=== PATIENT | male | born 1965 | race Caucasian/White ===

== ENCOUNTER 2018-04-11 14:56 | Observation (INO) | payer BC, SELFPAY ==
[2018-04-11] VITALS (8 sets, daily range): BP systolic 127–164; BP diastolic 68–91; PULSE 66–99; RESP 16–18; TEMP 36.1–36.8; O2SAT 91–100; BMI 39.9; BMI 39.5
--- NOTE | 2018-04-11 | IMM_PTH ---
PATIENT: KENIA SOOD LOC: MS3 U#:[id number] AGE/SX: 52/M ROOM: NH321 RE04/11/[address]: Dr. Tani Campbell MD : 1965 BED: 1 DIS: 04/12/2018 SPEC #: [id number] RECD: 04/13/18 13:43 STATUS: SOUZandra REQ #: [id number] TAYLER: 04/11/18 00:[address]: Tani Campbell DEPT: IMMUNOHISTOCHEMISTRY RECD BY: Ruth Oliveira ENTERED: 04/13/18 13:45 SP TYPE: IMMUNO OTHR DR: Dr. Landon Martinez MD Tissues: Appendix, NOS Procedures: Synapto (add) CD56 (add) CHROMO (add) NEUROFIL (add) Pankeratin (initial) S-100 (add) Comments: @ Specimen number changed from [id number] to [id number] @ on 04/13/18 at 1346 by RGOOD. PHYSICIAN & [address] [address] SPECIMEN INFORMATION: Tissue Source: Appendix Clinical Info: Acute appendicitis Specimen Number: [id number] #1 CPT code: 00679, 18094 x5 METHODOLOGY: Deparaffinized sections of prefer/formalin-fixed tissue or PAP/DQ stained slides are incubated with monoclonal/polyclonal antibodies/oligonucleotide probes. Localization is made via biotin free immunoperoxidase method. Appropriate controls are performed and reacted as expected. Results on target cell population are indicated in the following table: RESULTS: ANTIBODY / CLONE RESULT Block #1 AE1-3 (AE1/AE3/PCK26) negative S-100 (4C4.9) positive CD56 (123C3.D5) positive Chromo (LK2H10) negative Synapto (polyclonal) negative NSE Neuron Specific Enolase negative These tests were developed and their performance characteristics determined by [facility]. They may not have been cleared or approved by the U.S. Food and Drug Administration. The FDA has determined that such clearance or approval is not necessary. INTERPRETATION: Appendix, appendectomy: Consistent with focal benign neuronal hyperplasia. AM:yonas 04/17/18
--- NOTE | 2018-04-11 15:17 | CT_ITS ---
STUDY: CT ABDOMEN AND PELVIS WITH CONTRAST REASON FOR EXAM: Male, 52 years old. Right lower quadrant pain RADIATION DOSAGE (If Supplied By Facility): CTDIvol = ( 20.40 ) mGy, DLP = ( 1264.74 ) mGycm TECHNIQUE: Transaxial images were obtained from the dome of the diaphragm to the symphysis pubis without oral contrast. 100mL ml of Isovue 300 contrast was administered. Sagittal and coronal images were reconstructed. Individualized dose optimization techniques were used for this CT. COMPARISON: None. FINDINGS: Minor interstitial thickening at the lung bases. Heart appears mildly enlarged.. There is a small pericardial effusion.. There is prominence of the right lobe of the liver which is diffusely fatty infiltrated without mass or bile duct dilatation. Normal gallbladder and extrahepatic biliary system. Normal spleen. Normal pancreas. Normal bilateral adrenal glands. Tiny nonobstructing left renal calculus. No evidence for hydronephrosis or mass Normal visualized stomach. Normal small intestine. Normal colon. The appendix appears to be within the upper limits of normal size. There is no thickening of the wall, narrowing the lumen or appreciable inflammatory changes in the fat.. Normal abdominal aorta. Normal inferior vena cava. Normal retroperitoneum. Bladder is incompletely distended and mildly thick-walled There are mildly enlarged external iliac and femoral nodes bilaterally measuring in the 1 to 1.5 cm size range of uncertain clinical significance Normal abdominal wall. Lumbar spine demonstrates minor spondylosis CT/Abdomen/Pelvis WITH Contrast IMPRESSION: Left nephrolithiasis without evidence for nephrosis or ureteral calculus. Mild hepatomegaly and fatty infiltrated liver No definitive evidence for acute appendicitis. Incidental finding of mildly enlarged external iliac and common femoral nodes bilaterally of uncertain etiology or clinical significance. Electronically Signed: Neymar Puente MD at 17:31 EST , Service support ,
--- NOTE | 2018-04-11 15:21 | ED.VISSUMM ---
- ER Visit Summary Date of Service: 04/11/18 Chief Complaint: Abdominal pain History of Present Illness: The patient is a 52 M who presents with abdominal pain that began early this morning. Patient states the pain has been gradually getting worse. Patient states the pain is worse with certain movements. Patient states the pain is also worse with riding in a car. 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 She denies any nausea or vomiting but admits to diminished appetite. Patient denies any diarrhea, melena, or hematochezia. Patient denies any urinary complaints. Physical Examination: Vital signs are stable. Patient is afebrile. Patient is in no acute distress. Oral mucosa is pink and moist. Neck is supple. Trachea is midline. There is no JVD noted. Heart was regular rate and rhythm. Lungs are clear and equal bilateral. Abdomen is soft. Bowel sounds are normal. There is right lower quadrant, left lower quadrant, and right upper quadrant tenderness, but worse over the right lower quadrant. There is some rebound noted. There is no guarding noted. Obturator sign was negative. Heel strike was negative. Skin is warm dry. Cranial nerves II through XII are intact. There are no focal motor or sensory deficits noted. The remaining physical exam is within normal limits. Test Results: CBC showed a leukocytosis of 12.4. Comprehensive metabolic profile was within normal limits. Urinalysis was essentially within normal limits. CT scan of the abdomen and pelvis showed left nephrolithiasis without any evidence of ureteral calculus. There is no definite evidence for acute appendicitis. There are enlarged external iliac and common femoral lymph nodes. This was interpreted by the radiologist. Emergency Department Course and Treatment: Case was discussed with Dr. Campbell. He was in to evaluate the patient. He also felt that the patient had acute appendicitis. He will admit the patient and take the patient to the OR tonight for appendectomy. Patient understood and was agreeable with the plan. All questions were answered. Disposition: Admit to hospital Impression: Acute appendicitis This note was generated with [employer] dictation software. It may contain incorrect words, spelling, and punctuation that were not noted in review of the chart prior to signing ED Disposition - Plan for ED Patient: Disposition: Acute Care Hospital [facility] Chief Complaint: Abd Pain Diagnosis: Acute appendicitis Referrals: Landon Martinez MD [Primary Care Provider] -
--- NOTE | 2018-04-11 15:25 | ED.DCSUM_ITS ---
- ER Visit Summary Date of Service: 04/11/18 Chief Complaint: Abdominal pain History of Present Illness: The patient is a 52 M who presents with abdominal pain that began early this morning. Patient states the pain has been gradually getting worse. Patient states the pain is worse with certain movements. Patient states the pain is also worse with riding in a car. 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 She denies any nausea or vomiting but admits to diminished appetite. Patient denies any diarrhea, melena, or hematochezia. Patient denies any urinary complaints. Physical Examination: Vital signs are stable. Patient is afebrile. Patient is in no acute distress. Oral mucosa is pink and moist. Neck is supple. Trachea is midline. There is no JVD noted. Heart was regular rate and rhythm. Lungs are clear and equal bilateral. Abdomen is soft. Bowel sounds are normal. There is right lower quadrant, left lower quadrant, and right upper quadrant tenderness, but worse over the right lower quadrant. There is some rebound noted. There is no guarding noted. Obturator sign was negative. Heel strike was negative. Skin is warm dry. Cranial nerves II through XII are intact. There are no focal motor or sensory deficits noted. The remaining physical exam is within normal limits. Test Results: CBC showed a leukocytosis of 12.4. Comprehensive metabolic profile was within normal limits. Urinalysis was essentially within normal limits. CT scan of the abdomen and pelvis showed left nephrolithiasis without any evidence of ureteral calculus. There is no definite evidence for acute appendicitis. There are enlarged external iliac and common femoral lymph nodes. This was interpreted by the radiologist. Emergency Department Course and Treatment: Case was discussed with Dr. Campbell. He was in to evaluate the patient. He also felt that the patient had acute appendicitis. He will admit the patient and take the patient to the OR tonight for appendectomy. Patient understood and was agreeable with the plan. All questions were answered. Disposition: Admit to hospital Impression: Acute appendicitis This note was generated with [employer] dictation software. It may contain incorrect words, spelling, and punctuation that were not noted in review of the chart prior to signing ED Disposition - Plan for ED Patient: Disposition: Acute Care Hospital [facility] Chief Complaint: Abd Pain Diagnosis: Acute appendicitis Referrals: Landon Martinez MD [Primary Care Provider] -
[2018-04-11] MEDS: 0.9% Normal Saline 1,000 ML 1000 ML IV (15:31)
[2018-04-11] MEDS: Morphine 4 MG/ML Syringe IV (15:31)
[2018-04-11 15:33] LABS: Absolute Lymphocyte Count 3.22 X10^3/ul (0.83-4.51); Absolute Neutrophil Count 7.8 X10^3/uL (2.0-7.7); Basophil# 0.06 X10^3/uL; Basophil% 0.5 % (0-1); Eosinophil# 0.29 X10^3/uL; Eosinophils% 2.3 % (0-5); Hematocrit 46.6 % (40-54); Hemoglobin 15.4 g/dl (13.0-16.5); Lymphocyte # 3.22 X10^3/ul (4.0); Mean Corpuscular Hgb 30.9 pg (27.0-32.0); Mean Corpuscular Volume 93.6 fL (80-94); Mean Platelet Vol. 10.1 fl (6.2-12.0); Monocyte# 0.97 X10^3/uL; Monocyte% 7.8 % (0-10); Neutrophil # 7.82 X10^3/uL (2.7-7.7); Neutrophil % 63.2 % (47-70); Platelet Count 273 K/mm3 (150-450); RBC Distribution Width CV 14.1 % (11.6-14.6); RBC Distribution Width SD 46.6 fl (35.1-43.9); Red Blood Count 4.98 M/mm3 (4.6-6.2); White Blood Count 12.4 K/mm3 (4.4-11.0)
[2018-04-11 15:34] LABS: POSITIVE COUNT NO; POSITIVE DIFFERENTIAL NO; POSITIVE MORPHOLOGY NO
[2018-04-11 15:48] LABS: ALB/GLOB Ratio 0.9 RATIO (0.9-2.4); AST(SGOT) 16 U/L (15-37); Alanine Aminotransfer ALT/SGPT 30 U/L (16-61); Albumin, Serum 3.3 g/dL (3.2-5.0); Alkaline Phosphatase 91 U/L (45-117); Anion Gap 7 (5-15); BUN 14 mg/dL (7-18); BUN/Creat Ratio 15.4 RATIO (10-20); Calcium,Total 8.2 mg/dL (8.5-10.1); Chloride 104 mmol/L (98-107); Creatinine, Serum 0.91 mg/dL (0.70-1.30); EST Glomerular Filtration Rate 93 mL/min (>60); Est Glom Filt Rate - Afr Amer 113 mL/min (>60); Estimated Creatinine Clearance 92.91 ml/min; Globulin 3.7 g/dL (2.2-4.2); Glucose 98 mg/dL (74-106); Lipase 201 U/L (73-393); Potassium 4.1 mmol/L (3.5-5.1); Sodium Level 137 mmol/L (136-145)
[2018-04-11 17:02] LABS: Bacteria 0 SEEN /hpf (None Seen); Mucous, Urine 0 SEEN /hpf (<or=2+); Red Blood Cells-Urine 0 SEEN /hpf (0-5); Squamous Epithelial Cells - UA 0 SEEN /hpf (0-5); White Blood Cells 0 SEEN /hpf (0-5)
[2018-04-11 17:39] LABS: Color, Urine Yellow (Yellow); Glucose, Dipstick Normal (Normal); Ketone-Dipstick Negative (Negative); Leukocyte Esterase-Dipstick 25 /ul (Negative); Nitrite-Dipstick Negative (Negative); Occult Blood-Urine Negative /ul (Negative); Protein-Dipstick 15 mg/dl (Negative); Urine Bilirubin Dipstick Negative (Negative); Urine Clarity Clear (Clear); Urine Urobilinogen 4 mg/dl (Normal)
[2018-04-11 18:46] LABS: Bedside Glucose 104 mg/dL (70-110)
--- NOTE | 2018-04-11 19:00 | PCM.CONS.GEN ---
Problem List (1) Acute appendicitis Status: Acute Reason for Consult Date of Consultation: 04/11/18 History of Present Illness: The patient is a 52 M who presents with abdominal pain that began early this morning. Patient states the pain has been gradually getting worse. Patient states the pain is worse with certain movements. Patient states the pain is also worse with riding in a car. 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 She denies any nausea or vomiting but admits to diminished appetite. Patient denies any diarrhea, melena, or hematochezia. Patient denies any urinary complaints. CAT scan shows early acute appendicitis Past Medical History Allergies No Known Allergies Allergy (Verified 04/11/18 15:00) Home Medications: Ambulatory Orders Medication Instructions Recorded Furosemide [Lasix] 20 mg PO DAILY 04/11/18 Lisinopril 30 mg PO DAILY 04/11/18 Metformin HCl 500 mg PO BID 04/11/18 Metoprolol(XL)Succ [Toprol Xl 50 mg PO DAILY 04/11/18 (Beta Verna)] Smoking Status: Current every day smoker Patient Problems: Active and Suspected Problems Acute appendicitis (Acute) - Physical Exam General: Alert, Oriented x3 Lungs: Clear to auscultation Cardiovascular: Regular rate, Regular Rhythm, No murmurs Abdomen: Tender - Tender at McBurney's point with rebound guarding and peritoneal signs. Extremities: No clubbing, No cyanosis, No edema Vital Signs Temp Pulse Resp BP Pulse Ox 97.5 F L 78 18 164/82 H 100 04/11/18 14:58 04/11/18 14:58 04/11/18 14:58 04/11/18 14:58 04/11/18 14:58 Oxygen Delivery Method Room Air Weight: 262 lb 12.656 oz Body Mass Index (BMI) 39.9 Laboratory Tests Past 24 Hrs 04/11/18 04/11/18 04/11/18 15:20 15:20 16:59 WBC 12.4 H RBC 4.98 Hgb 15.4 Hct 46.6 MCV 93.6 MCH 30.9 MCHC 33.0 RDW 14.1 RDW Differential 46.6 H Plt Count 273 MPV 10.1 Immature Gran % (Auto) 0.200 Neut % (Auto) 63.2 Lymph % (Auto) 26.0 [place] % (Auto) 7.8 Eos % (Auto) 2.3 Baso % (Auto) 0.5 Absolute Neuts (auto) 7.8 H Absolute Lymphs (auto) 3.22 Total Counted Not Reportable Sodium 137 Potassium 4.1 Chloride 104 Carbon Dioxide 26.0 Anion Gap 7 BUN 14 Creatinine 0.91 Estim Creat Clear Calc 92.91 Est GFR (MDRD) Af Amer 113 Est GFR (MDRD) Non-Af 93 BUN/Creatinine Ratio 15.4 Glucose 98 Calcium 8.2 L Total Bilirubin 0.60 AST 16 ALT 30 Alkaline Phosphatase 91 Total Protein 7.0 Albumin 3.3 Globulin 3.7 Albumin/Globulin Ratio 0.9 Lipase 201 Urine Color Yellow Urine Clarity Clear Urine pH 7.0 Ur Specific [place] 1.010 Urine Protein 15 H Urine Glucose (UA) Normal Urine Ketones Negative Urine Occult Blood Negative Urine Nitrite Negative Urine Bilirubin Negative Urine Urobilinogen 4 H Ur Leukocyte Esterase 25 H Urine RBC 0 SEEN Urine WBC 0 SEEN Ur Squamous Epith Cells 0 SEEN Urine Bacteria 0 SEEN Urine Mucus 0 SEEN POC Glucose 04/11/18 18:33 POC Glucose 104 Assessment/Plan All Active Problems Acute appendicitis (Acute) My plan will be to perform a laparoscopic appendectomy on the patient. I told him there is a small chance this could be a Meckel's diverticulum and I will run the small bowel to make sure that he does not have one. Risk benefits to include bleeding infection delayed abscess injury to surrounding structures blood clots heart attacks pneumonias strokes up to and including were all discussed with the patient and they agreed to proceed.
--- NOTE | 2018-04-11 19:30 | APP_PTH ---
PATIENT: KENIA SOOD LOC: MS3 U#:[id number] AGE/SX: 52/M ROOM: TX321 RE04/11/[address]: Dr. Tani Campbell MD : 1965 BED: 1 DIS: 04/12/2018 SPEC #: [id number] RECD: 04/12/18 07:03 STATUS: RUKHSANA REFernandez #: [id number] TAYLER: 04/11/18 19:[address]: Tani Campbell DEPT: SURGICAL PATHOLOGY RECD BY: Rodney Humphries ENTERED: 04/12/18 08:42 SP TYPE: APPENDIX OTHR DR: Dr. Landon Martinez MD Tissues: Appendix, NOS Procedures: Surgery Specimen Level III HEADER OPERATION: Laparoscopic appendectomy PRE-OP DIAGNOSIS: Acute appendicitis TISSUE SUBMITTED: Appendix, torsed epiploic fat MICROSCOPIC DIAGNOSIS Appendix, appendectomy: Fecal impaction Focal neural hyperplasia, benign. Epiploic fat, excision: Congestion with acute inflammation consistent with torsion. AM:yonas 04/13/18 COMMENT Immunohistochemistry ([id number]) supports the above diagnosis. MICROSCOPIC DESCRIPTION Slides are reviewed. GROSS DESCRIPTION Received is one container labeled with the patient's name and designated appendix. The specimen consists of a vermiform appendix measuring 6.5 cm in length and with a maximal diameter of 0.8 cm. Sections reveal fecal material. No mass lesions are identified. Also present in the specimen container is an irregular fragment of ritchie-yellow fatty tissue measuring 7.5 x 6.5 x 2 cm. Serial sections of this fatty tissue reveals ritchie cut surfaces. No mass lesions are identified. Job Service Consultant sections of the appendix and fat are submitted in three cassettes. / AM:yonas 04/12/18 TC:5 CPT: 44326
--- NOTE | 2018-04-11 19:39 | OP.PCM_ITS ---
Problem List (1) Acute appendicitis Status: Acute Qualifiers: Acute appendicitis type: with localized peritonitis Appendicitis gangrene presence: without gangrene Appendicitis perforation presence: without perforation Appendicitis abscess presence: without abscess Qualified Code(s): K35.30 - Acute appendicitis with localized peritonitis, without perforation or gangrene (2) Epiploic appendagitis Status: Acute Report of Operation Date of Procedure: 04/11/18 Pre-Operative Diagnosis: Acute appendicitis Post-Operative Diagnosis: Same. Epiploic appendigitis Surgery/Procedure Performed:: Laparoscopic appendectomy. Resection of that epiploic fat Type of Anesthesia:: General Anesthesiologist: Cheryle Park Specimen's removed: Appendix Drains: None Estimated Blood Loss (mL): <25 cc Fluids Replaced: 600 cc lr Description of Procedure: Patient was brought to the operating room placed in supine position under excellent general trach intubation the abdomen was sterilely prepped and draped in the usual fashion. Local was injected in for umbilically. A curvilinear incision was made. Dissection was carried down to the fascia. Fascia was grasped with a [place]. Varies needle was placed inside the abdomen. The abdomen was insufflated to 15 torr. A 10/12 trocar was placed without difficulty. Patient was placed in the headdown and rotated to the left. Suprapubic #5 trochars placed left lower quadrant #5 trocar was placed both of these under direct visualization without injury to underlying structures. I dissected identified in the appendix took the mesoappendix down with the Enseal all the way to the base of the appendix. I transected the base the appendix with a 45 linear cutter placed the specimen in a bag and removed it from the umbilical port without difficulty. I was not satisfied that this appendix was the true cause of his discomfort I placed the patient head up position and was looking for a perforated ulcer when I encountered was a torsion of epiploic fat that looked I transected the epiploic fat with the Enseal placed in a specimen bag and delivered through the umbilical port without difficulty it obviously was probably the source of his discomfort and was located more in the right upper quadrant. I inspected the gallbladder this look normal I saw no purulent fluid to give me suggestion that this was a perforated ulcer in the stomach looked fine. I ran the small bowel for 2 feet I did not see any signs of Meckel's diverticulum. I removed the trochars under direct visualization. I closed the fascia the umbilical port with a kysclr-sb-ruyic stitch of 0 Vicryl x2. Skin incisions were closed with septicum stitches of 4-0 Monocryl. Steri-Strips are applied. Sterile dressings were applied. The patient tolerated the procedure well. - Admit VTE Documentation VTE Present on Admission: No VTE Mechan Device Prophylaxis: SCD's VTE Pharm Prophylaxis ordered?: No Reason prophylaxis not ordered:: Treatment Not Indicated
[2018-04-11] MEDS: Bupivacaine Mpf 0.5% 30 ML VIAL (19:40)
[2018-04-11 20:51] LABS: Bedside Glucose 152 mg/dL (70-110)
[2018-04-11] MEDS: Lactated Ringers 1,000 ML 75 ML IV (21:55)
--- NOTE | 2018-04-11 23:17 | CPS ---
pt has own bipap with nasal mask-did not bring with him- pt states does not want hospital bipap-nurse aware
[2018-04-12] VITALS (11 sets, daily range): BP systolic 121–152; BP diastolic 65–76; PULSE 60–74; RESP 16–18; TEMP 36.4–36.6; O2SAT 78–97
[2018-04-12] MEDS: Piperacil/Tazobactam 3.375 GM/50 ML ML IV ×2 (04:55→13:24)
--- NOTE | 2018-04-12 07:15 | PCM.DC.APPY ---
Discharge Diet: Light diet - advance as tolerated Discharge Activity: May Not Drive - for 5 days or while taking narcotic pain meds. May shower in (days): 1 Call your doctor if your incision/area has: Continuous Slow Oozing, Sudden Increased Bleeding, Increased Pain/ Swelling, Increased Redness, Foul Smelling Discharge Call your doctor if you observe: Fever of 101 or Higher Suture Line Care: Avoid Pulling/Pushing, Avoid Pinching/Bending Remove Dressing in (days):: 2 - Leave Steri-strips in place for 1 week from surgery Cleanse incision/area with: Soap & Water Additional Dressing/Incision Instructions:: Keep dressing clean and dry. Change or remove dressing in 2 days. Leave steri strips for 1 week. May protect with a gauze bandaid. Medications to take at Discharge Furosemide [Lasix] 20 mg PO DAILY 04/11/18 Lisinopril 30 mg PO DAILY 04/11/18 Metformin HCl 500 mg PO BID 04/11/18 Metoprolol(XL)Succ [Toprol Xl (Beta Verna)] 50 mg PO DAILY 04/11/18 Hydrocodone Bitart/Apap 5-325 [[place] 5/325] 1 - 2 tablet PO Q6H PRN PRN 3 Days #10 tablet 04/12/18 Allergies/Adverse Reactions: Allergies No Known Allergies Allergy (Verified 04/11/18 15:00) The following prescriptions were given: Hydrocodone Bitart/Apap 5-325 [[place] 5/325] 1 - 2 tablet PO Q6H PRN PRN 3 Days #10 tablet PRN Reason: Mild-Moderate (pain scale 1-5) Primary Care Physician: Landon Martinez MD [Primary Care Provider] - Test Results: Test results from this visit will be discussed in further detail at your follow-up appointment, if applicable. Please Follow Up With: Argelia Silverman PA-C - [phone] When: 10 days
--- NOTE | 2018-04-12 07:23 | PCM.PN.SRG ---
Patient Problems: Active and Suspected Problems Acute appendicitis (Acute) Epiploic appendagitis (Acute) Subjective: Patient evaluated resting comfortably in bed. He denies chest pain and shortness of breath. He notes minimal amount of abdominal pain. He denies nausea, vomiting, fever. He is tolerating diet well. He continues to be on oxygen secondary to low O2 sats. He denies flatus and BM. - Physical Exam General: Alert, Oriented x3, Cooperative Abdomen: Hypoactive Bowel Sounds, Distended, Tender - RLQ, - - Incisions- c/d/i. No erythema or infection noted. Vital Signs Temp Pulse Resp BP Pulse Ox 97.6 F L 64 18 152/76 H 94 04/12/18 06:32 04/12/18 06:32 04/12/18 06:32 04/12/18 06:32 04/12/18 06:32 Oxygen Flow Rate (L/min) 4 Oxygen Delivery Method Nasal Cannula Weight: 260 lb Body Mass Index (BMI) 39.5 Finger Stick Blood Glucose 152 Intake and Output for Last 24 Hours 04/10/18 04/11/18 04/12/18 23:59 23:59 23:59 Intake Total 1376 / 1376 924 / 924 Balance 1376 / 1376 924 / 924 Laboratory Tests Past 24 Hrs 04/11/18 04/11/18 04/11/18 15:20 15:20 16:59 WBC 12.4 H RBC 4.98 Hgb 15.4 Hct 46.6 MCV 93.6 MCH 30.9 MCHC 33.0 RDW 14.1 RDW Differential 46.6 H Plt Count 273 MPV 10.1 Immature Gran % (Auto) 0.200 Neut % (Auto) 63.2 Lymph % (Auto) 26.0 [place] % (Auto) 7.8 Eos % (Auto) 2.3 Baso % (Auto) 0.5 Absolute Neuts (auto) 7.8 H Absolute Lymphs (auto) 3.22 Total Counted Not Reportable Sodium 137 Potassium 4.1 Chloride 104 Carbon Dioxide 26.0 Anion Gap 7 BUN 14 Creatinine 0.91 Estim Creat Clear Calc 92.91 Est GFR (MDRD) Af Amer 113 Est GFR (MDRD) Non-Af 93 BUN/Creatinine Ratio 15.4 Glucose 98 Calcium 8.2 L Total Bilirubin 0.60 AST 16 ALT 30 Alkaline Phosphatase 91 Total Protein 7.0 Albumin 3.3 Globulin 3.7 Albumin/Globulin Ratio 0.9 Lipase 201 Urine Color Yellow Urine Clarity Clear Urine pH 7.0 Ur Specific [place] 1.010 Urine Protein 15 H Urine Glucose (UA) Normal Urine Ketones Negative Urine Occult Blood Negative Urine Nitrite Negative Urine Bilirubin Negative Urine Urobilinogen 4 H Ur Leukocyte Esterase 25 H Urine RBC 0 SEEN Urine WBC 0 SEEN Ur Squamous Epith Cells 0 SEEN Urine Bacteria 0 SEEN Urine Mucus 0 SEEN POC Glucose 04/11/18 04/11/18 20:40 18:33 POC Glucose 152 H 104 Medical Necessity - Tobacco Use Smoking Status: Current every day smoker Assessment/Plan All Active Problems Acute appendicitis (Acute) Epiploic appendagitis (Acute) I am following this patient in conjunction with Dr. Campbell S/p laparoscopic appendectomy Will need to wean off of oxygen Encourage ambulation and I.S. Hopeful discharge later today Code Visit Inpatient E&M: 72654 Subs Hosp L1 - Post-op
[2018-04-12] MEDS: HYDROcodone Bitartrate/Apap 5/325 Tablet PO (08:21)
[2018-04-12] MEDS: Furosemide 20 MG Tablet PO (08:23)
[2018-04-12] MEDS: Lisinopril 10 MG Tablet 30 MG PO (08:23)
[2018-04-12] MEDS: Metoprolol(XL)Succ 50 MG Tablet PO (08:23)
--- NOTE | 2018-04-12 10:07 | CASEMGMT ---
Addendum entered by Freda Mcdaniels 04/12/18 15:15: ENID spoke with Mackenzie in [facility]. Per Mackenzie pt was speaking to registration regarding insurance but will send Freda with [employer] up to speak with Pt. ENID met with pt to discuss self-pay. While this worker was meeting with pt, Freda from [employer] walked into room as well. Pt states that he got new cards and new member ID and group ID. Member ID and Group ID numbers provided to Freda with [facility]. Original Note: Social Work Note Pt is listed as self-pay. SW reviewed chart. Per [facility], pt informed [facility] that he has insurance and is calling employer. Freda Mcdaniels DRY BOSS, GIS ANALYST DEVELOPER
[2018-04-12] MEDS: 0.9% NaCl Peripheral Flush Adult/Peds IV (13:24)
--- OUTSIDE RECORDS SUMMARY | 2018-06-13 21:45 | XMS RPT_ITS ---
:1965 Author Organization OH[facility] Care Team Providers Name Role Phone DANAE ANDERSON (WATCH MANUFACTURING SUPERVISOR) Attending Unavailable MARÍA MCCARTNEY Referring Unavailable MARÍA MCCARTNEY Referring Unavailable DANAE ANDERSON ([facility]) Attending Unavailable DNAAE ANDERSON (WATCH MANUFACTURING SUPERVISOR) Referring Unavailable DANAE ANDERSON ([facility]) Referring Unavailable DANAE ANDERSON ([facility]) Attending Unavailable MARÍA MCCARTNEY Referring Unavailable María Mccartney Primary Care Unavailable Tani Campbell Attending Unavailable Tani Campbell Admitting Unavailable Tani Campbell Admitting Unavailable Argelia Silverman PA-C Attending Unavailable María Mccartney Primary Care Unavailable Tani Campbell Consulting Unavailable PROBLEMS PROBLEMS DATE TYPE CONDITION / CODE ATTENDING STATUS SOURCE 04/13/2018 Unknown K35.80 - Tani Campbell Active [facility] Unspecified acute Community appendicitis [facility] Hospital K35.80(ICD-10) Repository 11/07/2017 Active Unknown / DANAE ANDERSON Active [facility] UNK(Unknown) (WATCH MANUFACTURING SUPERVISOR) [place] Repository 07/20/2016 Active Abnormal findings NA Active [facility] on diagnostic [place] imaging of heart Repository and coronary circulation / R93.1(ICD-10) 10/31/2017 Active 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 [facility] (current) drug [place] therapy / Repository Z79.899(ICD-10) 10/31/2017 Active Essential NA Active [facility] (primary) [place] hypertension / Repository I10(ICD-10) PROCEDURES PROCEDURES No Procedure Records FoundRESULTS RESULTS DISCHARGE INSTRUCTION Observed: 04/12/2018 Status: F Source: URIEL 2:39 PM [facility] REPOSITORY [facility] Medical Records Department [address] [place] [address] Instructions for Home/Discharge Instructions 04/12/18 0715 MR#: [id number] Acct: [id number] Name: KENIA TRIVEDI Rep #: [id number] : 1965 52 From: Argelia Silverman PA-C PCP: María Mccartney MD Status: ADM FUNMI ADDENDUM by Argelia Silverman PA-C on 04/12/18 at 1439 Follow-up with PCP in 1 week. Continue to use incentive spirometer at home multiple times per day. Wear breathe rite strip. 04/12/18 1439 Date Argelia Silverman PA-C cc: María Mccartney MD * Signed Discharge Diet: Light diet - advance as tolerated Discharge Activity: May Not Drive - for 5 days or while taking narcotic pain meds. May shower in (days): 1 Call your doctor if your incision/area has: Continuous Slow Oozing, Sudden Increased Bleeding, Increased Pain/ Swelling, Increased Redness, Foul Smelling Discharge Call your doctor if you observe: Fever of 101 or Higher Suture Line Care: Avoid Pulling/Pushing, Avoid Pinching/Bending Remove Dressing in (days):: 2 - Leave Steri-strips in place for 1 week from surgery Cleanse incision/area with: Soap AND Water Additional Dressing/Incision Instructions:: Keep dressing clean and dry. Change or remove dressing in 2 days. Leave steri strips for 1 week. May protect with a gauze bandaid. Medications to take at Discharge Furosemide [Lasix] 20 mg PO DAILY 04/11/18 Lisinopril 30 mg PO DAILY 04/11/18 Metformin HCl 500 mg PO BID 04/11/18 Metoprolol(XL)Succ [Toprol Xl (Beta Verna)] 50 mg PO DAILY 04/11/18 Hydrocodone Bitart/Apap 5-325 [[place] 5/325] 1 - 2 tablet PO Q6H PRN PRN 3 Days #10 tablet 04/12/18 Allergies/Adverse Reactions: Allergies No Known Allergies Allergy (Verified 04/11/18 15:00) The following prescriptions were given: Hydrocodone Bitart/Apap 5-325 [[place] 5/325] 1 - 2 tablet PO Q6H PRN PRN 3 Days #10 tablet PRN Reason: Mild-Moderate (pain scale 1-5) Primary Care Physician: María Mccartney MD [Primary Care Provider] - Test Results: Test results from this visit will be discussed in further detail at your follow-up appointment, if applicable. Please Follow Up With: Argelia Silverman PA-C - [phone] When: 10 days 04/12/18 07 <Electronically signed by Argelia Silverman PA-C> Date Argelia Silverman PA-C CC: María Mccartney MD Signed BEDSIDE GLUCOSE Collected: 04/11/2018 Status: F Source: URIEL 8:40 PM [facility] REPOSITORY TYPE CODE TESTS RESULT OUT OF REFERENCE UNITS RANGE LAB L501.080 70-110 mg/dL High BEDSIDE GLU 152 Result Comment: MANAGEMENT OF PATIENT CARE PER NURSING PROTOCOL Performed By: #### L501.080 #### [facility] Laboratory Point of Care [address] [place] [address] BEDSIDE GLUCOSE Collected: 04/11/2018 Status: F Source: URIEL 6:33 PM [facility] REPOSITORY TYPE CODE TESTS RESULT OUT OF RANGE REFERENCE UNITS LAB L501.080 70-110 mg/dL Normal BEDSIDE GLU 104 Result Comment: MANAGEMENT OF PATIENT CARE PER NURSING PROTOCOL Performed By: #### L501.080 #### [facility] Point of Care [address] [place] [address] EMERGENCY DEPARTMENT Observed: 04/11/2018 Status: F Source: URIEL SUMMARY 5:53 PM [facility] REPOSITORY [facility] Medical Records Department [address] [place] [address] Emergency Department Summary 04/11/18 1521 MR#: [id number] Acct: [id number] Name: KENIA TRIVEDI Rep #: [id number] : 1965 52 From: Son Robbins DO PCP: María Mccartney MD Status: REG ER - ER Visit Summary Date of Service: 04/11/18 Chief Complaint: Abdominal pain History of Present Illness: The patient is a 52 M who presents with abdominal pain that began early this morning. Patient states the pain has been gradually getting worse. Patient states the pain is worse with certain movements. Patient states the pain is also worse with riding in a car. 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 She denies any nausea or vomiting but admits to diminished appetite. Patient denies any diarrhea, melena, or hematochezia. Patient denies any urinary complaints. Physical Examination: Vital signs are stable. Patient is afebrile. Patient is in no acute distress. Oral mucosa is pink and moist. Neck is supple. Trachea is midline. There is no JVD noted. Heart was regular rate and rhythm. Lungs are clear and equal bilateral. Abdomen is soft. Bowel sounds are normal. There is right lower quadrant, left lower quadrant, and right upper quadrant tenderness, but worse over the right lower quadrant. There is some rebound noted. There is no guarding noted. Obturator sign was negative. Heel strike was negative. Skin is warm dry. Cranial nerves II through XII are intact. There are no focal motor or sensory deficits noted. The remaining physical exam is within normal limits. Test Results: CBC showed a leukocytosis of 12.4. Comprehensive metabolic profile was within normal limits. Urinalysis was essentially within normal limits. CT scan of the abdomen and pelvis showed left nephrolithiasis without any evidence of ureteral calculus. There is no definite evidence for acute appendicitis. There are enlarged external iliac and common femoral lymph nodes. This was interpreted by the radiologist. Emergency Department Course and Treatment: Case was discussed with Dr. Campbell. He was in to evaluate the patient. He also felt that the patient had acute appendicitis. He will admit the patient and take the patient to the OR tonight for appendectomy. Patient understood and was agreeable with the plan. All questions were answered. Disposition: Admit to hospital Impression: Acute appendicitis This note was generated with [employer] dictation software. It may contain incorrect words, spelling, and punctuation that were not noted in review of the chart prior to signing ED Disposition - Plan for ED Patient: Disposition: Acute Care Hospital [facility] Chief Complaint: Abd Pain Diagnosis: Acute appendicitis Referrals: María Mccartney MD [Primary Care Provider] - What to do if you have Problems For any increased pain, shortness of breath, bleeding, nausea or vomiting, chest pain, or any unexpected problems, contact your Primary Care Provider. Call [facility] ([phone]) or report to the closest Emergency Room. Call 911 if necessary. 04/11/18 1753 <Electronically signed by Son Robbins DO> Date Son Robbins DO Cosigner Signature (If Indicated): Date CC: María Mccartney MD URINALYSIS, COMPLETE Collected: 04/11/2018 Status: F Source: URIEL 4:59 PM [facility] REPOSITORY Order Comment: Order Date: 04/11/18 How was Urine Obtained? CLEAN CATCH TYPE CODE TESTS RESULT OUT OF RANGE REFERENCE UNITS LAB L400.3000 Yellow COLOR Normal Yellow LAB L400.3050 Clear Normal CLARITY Clear LAB L400.3200 Normal mg/dl Normal GLUCOSE, UR Normal LAB L400.3300 Negative mg/dL Normal BILIRUBIN URINE Negative LAB L400.3400 Negative mg/dl Normal KETONE UR Negative LAB L400.3465 1.002-1.030 Normal SP.GR. DIPSTX 1.010 LAB L400.3550 5.0 - 8.0 pH UR Normal 7.0 LAB L400.3600 Negative mg/dl High PROT 15 DIPSTX LAB L400.3700 Normal mg/dl High 4 UROBILI LAB L400.3750 Negative Normal NITRITE UR Negative LAB L400.3780 Negative /ul Normal OCCULT BLOOD-UR Negative LAB L400.3800 Negative /ul High LEUK 25 ESTERASE LAB L400.4050 0-5 /hpf WBC 0 Normal SEEN LAB L400.4100 0-5 /hpf 0 Normal RBC-UA SEEN LAB L400.4150 0-5 /hpf SQUAM 0 Normal EPI SEEN LAB L400.4300 None Seen /hpf 0 Normal BACTERIA SEEN LAB L400.4350 <or=2+ /hpf 0 Normal MUCUS, URINE SEEN Performed By: #### L400.0001 #### [facility] [address] [place], [address] CBC W/DIFF, AUTOMATED Collected: 04/11/2018 Status: F Source: [place] 3:20 PM [facility] REPOSITORY TYPE CODE TESTS RESULT OUT OF RANGE REFERENCE UNITS LAB L100.1000 4.4-11.0 K/mm3 High WBC 12.4 LAB L100.1200 4.6-6.2 M/mm3 Normal RBC 4.98 LAB L100.1300 13.0-16.5 g/dl Normal HGB 15.4 LAB L100.1400 40-54 % Normal HCT 46.6 LAB L100.1500 80-94 fL Normal MCV 93.6 LAB L100.1600 27.0-32.0 pg Normal MCH 30.9 LAB L100.1700 32-36 g/gl Normal MCHC 33.0 LAB L100.1810 11.6-14.6 % Normal RDW CV 14.1 LAB L100.1820 35.1-43.9 fl High RDW SD 46.6 LAB L100.1900 150-450 K/mm3 Normal PLT 273 LAB L100.2000 6.2-12.0 fl Normal MPV 10.1 LAB L100.2100 47-70 % Normal NEUT% 63.2 LAB L100.2200 19-41 % Normal LY% 26.0 LAB L100.2300 0-10 % Normal MONO% 7.8 LAB L100.2400 0-5 % Normal EO% 2.3 LAB L100.2500 0-1 % Normal BASO% 0.5 LAB L100.2550 0.0-0.9 % Normal IM GRAN % 0.200 Result Comment: IG% - Immature Granulocytes (promyelocytes, myelocytes and metamyelocytes) > 1% indicates that a LEFT SHIFT is Present. LAB L100.2620 2.0-7.7 X10 3/uL High Absolute Neut 7.8 LAB L100.2720 0.83-4.51 X10 3/ul Normal Absolute Lymph 3.22 Performed By: #### L100.0100 #### [facility] [place] [address] [address], [address] COMPREHENSIVE METABOLIC Collected: 04/11/2018 Status: F Source: URIEL [facility] 3:20 PM [facility] REPOSITORY TYPE CODE TESTS RESULT OUT OF RANGE REFERENCE UNITS LAB L501.0100 74-106 mg/dL Normal GLU 98 Result Comment: Please note revised GLUCOSE reference range effective 2017. LAB L501.1000 7-18 mg/dL Normal BUN 14 LAB L501.1100 0.70-1.30 mg/dL Normal CREAT,SERUM 0.91 Result Comment: The validity of the calculated GFR AND GFRAA in patients over 70 years has not been determined. Clinical correlation is essential. LAB L501.1110 >60 mL/min Normal EST GFR 93 Result Comment: Non- GFR Calc LAB L501.1115 >60 mL/min Normal EST GFR - AA 113 Result Comment: GFR Calc LAB L501.1255 ml/min Normal Estimated CRCL 92.91 LAB L501.1300 10-20 RATIO Normal BUN/CRE 15.4 LAB L501.1500 6.4-8. g/dL Normal 2 T PROT 7.0 LAB L501.1800 3.2-5. g/dL Normal 0 ALB 3.3 LAB L501.1950 2.2-4. g/dL Normal 2 GLOB 3.7 LAB L501.2000 0.9-2. RATIO Normal 4 A/G 0.9 LAB L501.2200 8.5-10 mg/dL Low .1 CA 8.2 LAB L501.4100 15-37 U/L Normal AST 16 LAB L501.4305 45-117 U/L Normal ALK P 91 LAB L501.4405 16-61 U/L Normal ALT 30 LAB L501.4600 0.20-1 mg/dL Normal .00 T BILI 0.60 LAB L501.5300 136-14 mmol/L Normal 5 NA 137 LAB L501.5600 3.5-5. mmol/L Normal 1 K 4.1 LAB L501.5900 98-107 mmol/L Normal CL 104 LAB L501.6100 21.0-3 mmol/L Normal 2.0 CO2 26.0 LAB L501.6200 5-15 Normal GAP 7 Performed By: #### L500.4050, L501.2450 #### [facility] [address] [place], [address] LIPASE Collected: 04/11/2018 Status: F Source: [place] 3:20 PM [facility] REPOSITORY TYPE CODE TESTS RESULT OUT OF RANGE REFERENCE UNITS LAB L501.2450 73-393 U/L Normal LIPASE 201 Performed By: #### L500.4050, L501.2450 #### [facility] [address] [facility] [place], [address] ABDOMEN/PELVIS WITH Observed: 04/11/2018 Status: F Source: [place] CONTRAST 3:19 PM [facility] REPOSITORY [facility] Imaging Services [address] [place] [address] Abdomen/Pelvis WITH Contrast MR#: [id number] Acct: [id number] Name: KENIA TRIVEDI Rep #: [id number] : 1965 M 52 From: Neymar Puente MD PCP: María Mccartney MD Status: REG ER Study: Abdomen/Pelvis WITH Contrast Date of Exam: 04/11/18 Exam# [id number] Ordering Dr: Son Robbins DO STUDY: CT ABDOMEN AND PELVIS WITH CONTRAST REASON FOR EXAM: Male, 52 years old. Right lower quadrant pain RADIATION DOSAGE (If Supplied By Facility): CTDIvol = ( 20.40 ) mGy, DLP = ( 1264.74 ) mGycm TECHNIQUE: Transaxial images were obtained from the dome of the diaphragm to the symphysis pubis without oral contrast. 100mL ml of Isovue 300 contrast was administered. Sagittal and coronal images were reconstructed. Individualized dose optimization techniques were used for this CT. COMPARISON: None. FINDINGS: Minor interstitial thickening at the lung bases. Heart appears mildly enlarged.. There is a small pericardial effusion.. There is prominence of the right lobe of the liver which is diffusely fatty infiltrated without mass or bile duct dilatation. Normal gallbladder and extrahepatic biliary system. Normal spleen. Normal pancreas. Normal bilateral adrenal glands. Tiny nonobstructing left renal calculus. No evidence for hydronephrosis or mass Normal visualized stomach. Normal small intestine. Normal colon. The appendix appears to be within the upper limits of normal size. There is no thickening of the wall, narrowing the lumen or appreciable inflammatory changes in the fat.. Normal abdominal aorta. Normal inferior vena cava. Normal retroperitoneum. Bladder is incompletely distended and mildly thick-walled There are mildly enlarged external iliac and femoral nodes bilaterally measuring in the 1 to 1.5 cm size range of uncertain clinical significance Normal abdominal wall. Lumbar spine demonstrates minor spondylosis CT/Abdomen/Pelvis WITH Contrast IMPRESSION: Left nephrolithiasis without evidence for nephrosis or ureteral calculus. Mild hepatomegaly and fatty infiltrated liver No definitive evidence for acute appendicitis. Incidental finding of mildly enlarged external iliac and common femoral nodes bilaterally of uncertain etiology or clinical significance. Electronically Signed: Neymar Puente MD at 17:31 EST , Service support , CC: Son Robbins DO; María Mccartney MD Dressmaking Teacher: Signed PROGRESS Observed: 11/14/2017 Status: COMPLETED Source: [place] 7:40 AM [facility] REPOSITORY HNO ID: [id number] Author: Danae Anderson Service: (none) Author Type: Nurse Practitioner Type: Progress Notes Filed: 11/14/2017 7:57 AM Note Text: Kenia Trivedi is a 52 year old male who presents in follow up of HTN and was last seen 1 week ago. Since then, he did have an echocardiogram for a past findings of decreased EF. It showed an EF of 34%, with grade III diastolic dysfunction. We increased his lasix to 40 mg daily. Also increased his lisinopril to 30 mg daily. Metoprolol XL 50 mg daily also. Today, his BP is improved at 130/89. HTN: Mr. Trivedi indicates that he is feeling well and denies any symptoms referable to elevated blood pressure. Specifically denies headache, chest pain, palpitations, dyspnea and peripheral edema. Patient denies any side effects of his medication(s) and is compliant with their regimen. He does check BP's away from this office with average BP's in the 130s-80s range. Kenia gets sporadic irregular exercise. He watches his diet for sodium, low fat and low cholesterol most of the time. Last 3 Encounter BP Readings: Date: BP: 11/14/2017 130/89 11/07/2017 163/100 10/31/2017 190/110 07/20/2016 152/90 Past Medical, Surgical, Family and Social Histories reviewed and updated today in the History tab of [facility] - 3P. Current Medications and allergies reviewed. PAST MEDICAL HISTORY Diagnosis Date - Essential hypertension, benign PAST SURGICAL HISTORY Procedure Laterality Date - NONE ACTIVE PROBLEM LIST Hypertension Venous Insufficiency Curtis (Obstructive Sleep Apnea) Cardiac Lv Ejection Fraction 21-30% Type 2 Diabetes Mellitus Without Complication, Without Long- Term Current Use of Insulin (Hcc) Hyperlipidemia, Mixed ALLERGIES: Patient has no known allergies. Current Outpatient Prescriptions: furosemide (LASIX) 20 mg tablet Take 2 tablets by mouth once daily. lisinopril (ZESTRIL, PRINIVIL) 20 mg tablet Take 1.5 tablets by mouth once daily. metFORMIN (GLUCOPHAGE) 500 mg tablet Take 2 tablets by mouth twice daily with meals. Begin with 1 tablet daily for one week and then increase to one table twice daily. atorvastatin (LIPITOR) 40 mg tablet Take 1 tablet by mouth daily at bedtime. For cholesterol. metoprolol succinate ER (TOPROL XL) 50 mg 24 hr tablet Take 1 tablet by mouth once daily. COMPOUNDED PRESCRIPTION Knee High Compression Stockings 15- 20 mm, DX: Venous insufficiency and edema potassium chloride ER (KLOR-CON M20) 20 mEq tablet Take 20 mEq by mouth once daily. ipratropium-albuterol (COMBIVENT RESPIMAT) 20-100 mcg/actuation mist Inhale 1 Puff as instructed as needed. CPAP Initiate Auto PAP @ 5-20 cm of water with humidification. Mask (per patient preference) optional chin strap (if indicated) , filters, tubing, humidifier and lifetime supplies. With Nocturnal Oximetry. No current facility-administered medications for this visit. FAMILY HISTORY Problem Relation Age of Onset - Hypertension Father - Cancer Paternal Grandmother brain cancer - Cancer Paternal Grandfather brain cancer Social History Marital status: Single Spouse name: Years of education: 12th grade Number of children: 1 Occupational History Occupation Employer Comment [employer] Social History Main Topics Smoking status: Current Every Day Smoker Packs/day: 1.00 Years: 20.00 Types: Cigarettes Last attempt to quit: 06/02/2016 Smokeless tobacco: Former User Comment: used to chew occasionally Alcohol use: Yes Comment: occasional Drug use: No Sexual activity: Yes Partners with: Female PHYSICAL EXAM: BP 130/89 (BP Site: Right Arm, BP Position: Sitting, BP Cuff Size: Large Adult) Pulse 92 Wt 113.4 kg (250 lb) BMI 38.01 kg/m? General appearance: Alert, cooperative, pleasant, in no acute distress, generally fit Head: Normocephalic, atraumatic Eyes: conjunctiva/corneas normal, PERRL Oropharynx: moist without lesions, teeth in good repair Neck: normal, supple, no adenopathy, thyroid normal size, non-tender, without nodularity and no bruits Heart: normal, regular rate and rhythm, without murmur Lungs: clear to auscultation, without rales or wheeze, good air exchange Abdomen:soft, nondistended, nontender, no hepatosplenomegaly or masses Ext: no edema in LE bilaterally, good distal pulses Results Echocardiography Report: Transthoracic Echo [facility] Date of service: 11/07/2017 2:23:38 PM Ordering physician: DANAE ANDERSON Indication: Initial evaluation of Heart Failure ? Technologist: Lawanda Fall [facility] Interpreting physician: Dwight Nagy MD ? PATIENT: Name: KENIA TRIVEDI : 1965 Age: 52 years Gender: M History of hypertension, diabetes mellitus and dyslipidemia. Primary rhythm: sinus. Height: 172.72 cm BSA: 2.37 m? Weight: 117.03 kg BMI: 39.2 kg/m? ? Heart rate ? ? 78 bpm Blood pressure 187/94 mmHg Color Doppler was utilized to interrogate the cardiac valves assessed in this exam. ? MEASUREMENTS: ? Value ? Indexed ? ? Normal Max aortic dimension ? ?3.0 cm ?1.27 cm/m? Left atrial volume ? ? ?54 ml (biplane A-L) 23 ml/m? ? ?Manuel <= 34 LV stroke volume ?89 ml (2D biplane) LV end diastolic volume 259 ml (2D biplane) 109.2 ml/m? 34<=EDVi<75 LV end systolic volume ?170 ml (2D biplane) 71.8 ml/m? Ejection Fraction ? ? ? 34 % (2D biplane) ? EF > 52 ? FINDINGS: ? LEFT VENTRICLE The left ventricle is moderately dilated. There is no left ventricular hypertrophy. Left ventricular systolic function is moderately decreased globally. Grade III left ventricular diastolic dysfunction. Definity contrast used for endocardial border detection. Wall Motion: The entire anterior wall, entire lateral wall, entire septum, entire apex, and entire inferior wall are severely hypokinetic. ? ? RIGHT VENTRICLE The right ventricle is normal in size. Right ventricular systolic function is normal. RV systolic tissue Doppler velocity ?is 10.0 cm/s. Tricuspid annular displacement is 2.2 cm. ? LEFT ATRIUM The left atrial cavity is normal in size. ? RIGHT ATRIUM Unable to reliably measure RA volume due to technical limitations. Inferior Vena Cava: The inferior vena cava appears normal measuring 2.0 cm. The vessel decreases less than 50 percent with inspiration. MITRAL VALVE The mitral valve leaflets are structurally normal. Cachil Dehe mitral valve. There is trivial mitral valve regurgitation. There is no thickening. There is no calcification. ? TRICUSPID VALVE The tricuspid valve leaflets are structurally normal. Cachil Dehe tricuspid valve. The hepatic venous pattern showed normal systolic flow. ? AORTIC VALVE The aortic valve cusps are structurally normal. ? AORTA The visualized aorta is normal in size. Measurements - Mid ascending aorta 3.0 cm. PULMONARY ARTERIES The pulmonary arteries are unseen or not interrogated. ? PERICARDIUM The pericardium is normal. There is no pericardial effusion. ? CONCLUSIONS: - Exam indication: Initial evaluation of Heart Failure - The left ventricle is moderately dilated. There is no left ventricular hypertrophy. Left ventricular systolic function is moderately decreased. EF = 34 ? ?5% (2D biplane) Definity contrast used for endocardial border detection. Grade III left ventricular diastolic dysfunction. - The right ventricle is normal in size. Right ventricular systolic function is normal. - The patient has not had a prior CC echocardiographic exam for comparison. ? Component Latest Ref Rng AND Units 10/31/2017 Protein, Total 6.3 - 8.0 g/dL 7.1 Albumin 3.9 - 4.9 g/dL 4.0 Calcium 8.5 - 10.2 mg/dL 9.8 Bilirubin, Total 0.2 - 1.3 mg/dL 0.7 Alkaline Phosphatase 36 - 108 U/L 97 AST 14 - 40 U/L 23 Glucose 74 - 99 mg/dL 126 (H) BUN 9 - 24 mg/dL 15 Creatinine 0.73 - 1.22 mg/dL 0.88 Sodium 136 - 144 mmol/L 136 Potassium 3.7 - 5.1 mmol/L 4.6 Chloride 97 - 105 mmol/L 97 CO2 22 - 30 mmol/L 26 Anion Gap 9 - 18 mmol/L 13 ALT 10 - 54 U/L 25 eGFR- >60 eGFR-All Other Races . >60 Cholesterol, Total <200 mg/dL 185 Triglyceride <150 mg/dL 97 HDL Cholesterol >39 mg/dL 25 (L) LDL Cholesterol <100 mg/dL 141 (H) Non HDL Cholesterol <130 mg/dL 160 (H) Fasting Time hrs 13 VLDL Cholesterol <30 mg/dL 19 TC:HDL Ratio <5.10 7.40 (H) LDL:HDL Ratio <2.54 5.64 (H) Hemoglobin A1C 4.3 - 5.6 % 6.9 (H) Estimated Average Glucose mg/dL 151 ASSESSMENT/PLAN: 1. Essential hypertension - ICD9: 401.9, ICD10: I10 (primary diagnosis) - good control - Continue current medication(s) - Encouraged dietary sodium restriction/DASH diet - Recommended regular aerobic exercise. - Recommend home blood pressure monitoring, to bring results in on next visit - Discussed need and benefit for weight loss. - BASIC METABOLIC PNL 2. Chronic combined systolic and diastolic CHF (congestive heart failure) (HCC) - ICD9: 428.42, 428.0, ICD10: I50.42 - Much improved, continue with plan to see cardiology in December. F/u in 1 month, get bmp prior. Letter for DOT given. Danae Anderson APRN.CNP CNOV Observed: 11/14/2017 Status: COMPLETED Source: [place] 7:[address] [facility] REPOSITORY Office Visit (FAMPWS) KENIA TRIVEDI ([id number]) 1965 M Date Time Provider Department 11/14/17 7:40 AM DANAE ANDERSON (ARCELIA) FAMPWS During your visit today, we recorded the following information about you: Pulse Blood pressure Weight 92/minute 130/89 113.4 kg Danae Anderson APRN.CNP 11/14/2017 7:57 AM Signed Kenia Trivedi is a 52 year old male who presents in follow up of HTN and was last seen 1 week ago. Since then, he did have an echocardiogram for a past findings of decreased EF. It showed an EF of 34%, with grade III diastolic dysfunction. We increased his lasix to 40 mg daily. Also increased his lisinopril to 30 mg daily. Metoprolol XL 50 mg daily also. Today, his BP is improved at 130/89. HTN: Mr. Trivedi indicates that he is feeling well and denies any symptoms referable to elevated blood pressure. Specifically denies headache, chest pain, palpitations, dyspnea and peripheral edema. Patient denies any side effects of his medication(s) and is compliant with their regimen. He does check BP's away from this office with average BP's in the 130s-80s range. Kenia gets sporadic irregular exercise. He watches his diet for sodium, low fat and low cholesterol most of the time. Last 3 Encounter BP Readings: Date: BP: 11/14/2017 130/89 11/07/2017 163/100 10/31/2017 190/110 07/20/2016 152/90 Past Medical, Surgical, Family and Social Histories reviewed and updated today in the History tab of [facility]. Current Medications and allergies reviewed. PAST MEDICAL HISTORY Diagnosis Date - Essential hypertension, benign PAST SURGICAL HISTORY Procedure Laterality Date - NONE ACTIVE PROBLEM LIST Hypertension Venous Insufficiency Curtis (Obstructive Sleep Apnea) Cardiac Lv Ejection Fraction 21-30% Type 2 Diabetes Mellitus Without Complication, Without Long- Term Current Use of Insulin (Hcc) Hyperlipidemia, Mixed ALLERGIES: Patient has no known allergies. Current Outpatient Prescriptions: furosemide (LASIX) 20 mg tablet Take 2 tablets by mouth once daily. lisinopril (ZESTRIL, PRINIVIL) 20 mg tablet Take 1.5 tablets by mouth once daily. metFORMIN (GLUCOPHAGE) 500 mg tablet Take 2 tablets by mouth twice daily with meals. Begin with 1 tablet daily for one week and then increase to one table twice daily. atorvastatin (LIPITOR) 40 mg tablet Take 1 tablet by mouth daily at bedtime. For cholesterol. metoprolol succinate ER (TOPROL XL) 50 mg 24 hr tablet Take 1 tablet by mouth once daily. COMPOUNDED PRESCRIPTION Knee High Compression Stockings 15- 20 mm, DX: Venous insufficiency and edema potassium chloride ER (KLOR-CON M20) 20 mEq tablet Take 20 mEq by mouth once daily. ipratropium-albuterol (COMBIVENT RESPIMAT) 20-100 mcg/actuation mist Inhale 1 Puff as instructed as needed. CPAP Initiate Auto PAP @ 5-20 cm of water with humidification. Mask (per patient preference) optional chin strap (if indicated) , filters, tubing, humidifier and lifetime supplies. With Nocturnal Oximetry. No current facility-administered medications for this visit. FAMILY HISTORY Problem Relation Age of Onset - Hypertension Father - Cancer Paternal Grandmother brain cancer - Cancer Paternal Grandfather brain cancer Social History Marital status: Single Spouse name: Years of education: 12th grade Number of children: 1 Occupational History Occupation Employer Comment [employer] Social History Main Topics Smoking status: Current Every Day Smoker Packs/day: 1.00 Years: 20.00 Types: Cigarettes Last attempt to quit: 06/02/2016 Smokeless tobacco: Former User Comment: used to chew occasionally Alcohol use: Yes Comment: occasional Drug use: No Sexual activity: Yes Partners with: Female PHYSICAL EXAM: BP 130/89 (BP Site: Right Arm, BP Position: Sitting, BP Cuff Size: Large Adult) Pulse 92 Wt 113.4 kg (250 lb) BMI 38.01 kg/m? General appearance: Alert, cooperative, pleasant, in no acute distress, generally fit Head: Normocephalic, atraumatic Eyes: conjunctiva/corneas normal, PERRL Oropharynx: moist without lesions, teeth in good repair Neck: normal, supple, no adenopathy, thyroid normal size, non-tender, without nodularity and no bruits Heart: normal, regular rate and rhythm, without murmur Lungs: clear to auscultation, without rales or wheeze, good air exchange Abdomen:soft, nondistended, nontender, no hepatosplenomegaly or masses Ext: no edema in LE bilaterally, good distal pulses Results Echocardiography Report: Transthoracic Echo [facility] Date of service: 11/07/2017 2:23:38 PM Ordering physician: DANAE ANDERSON Indication: Initial evaluation of Heart Failure ? Technologist: Lawanda Fall [facility] Interpreting physician: Dwight Nagy MD ? PATIENT: Name: KENIA TRIVEDI : 1965 Age: 52 years Gender: M History of hypertension, diabetes mellitus and dyslipidemia. Primary rhythm: sinus. Height: 172.72 cm BSA: 2.37 m? Weight: 117.03 kg BMI: 39.2 kg/m? ? Heart rate ? ? 78 bpm Blood pressure 187/94 mmHg Color Doppler was utilized to interrogate the cardiac valves assessed in this exam. ? MEASUREMENTS: ? Value ? Indexed ? ? Normal Max aortic dimension ? ?3.0 cm ?1.27 cm/m? Left atrial volume ? ? ?54 ml (biplane A-L) 23 ml/m? ? ?Manuel <= 34 LV stroke volume ?89 ml (2D biplane) LV end diastolic volume 259 ml (2D biplane) 109.2 ml/m? 34<=EDVi<75 LV end systolic volume ?170 ml (2D biplane) 71.8 ml/m? Ejection Fraction ? ? ? 34 % (2D biplane) ? EF > 52 ? FINDINGS: ? LEFT VENTRICLE The left ventricle is moderately dilated. There is no left ventricular hypertrophy. Left ventricular systolic function is moderately decreased globally. Grade III left ventricular diastolic dysfunction. Definity contrast used for endocardial border detection. Wall Motion: The entire anterior wall, entire lateral wall, entire septum, entire apex, and entire inferior wall are severely hypokinetic. ? ? RIGHT VENTRICLE The right ventricle is normal in size. Right ventricular systolic function is normal. RV systolic tissue Doppler velocity ?is 10.0 cm/s. Tricuspid annular displacement is 2.2 cm. ? LEFT ATRIUM The left atrial cavity is normal in size. ? RIGHT ATRIUM Unable to reliably measure RA volume due to technical limitations. Inferior Vena Cava: The inferior vena cava appears normal measuring 2.0 cm. The vessel decreases less than 50 percent with inspiration. MITRAL VALVE The mitral valve leaflets are structurally normal. Cachil Dehe mitral valve. There is trivial mitral valve regurgitation. There is no thickening. There is no calcification. ? TRICUSPID VALVE The tricuspid valve leaflets are structurally normal. Cachil Dehe tricuspid valve. The hepatic venous pattern showed normal systolic flow. ? AORTIC VALVE The aortic valve cusps are structurally normal. ? AORTA The visualized aorta is normal in size. Measurements - Mid ascending aorta 3.0 cm. PULMONARY ARTERIES The pulmonary arteries are unseen or not interrogated. ? PERICARDIUM The pericardium is normal. There is no pericardial effusion. ? CONCLUSIONS: - Exam indication: Initial evaluation of Heart Failure - The left ventricle is moderately dilated. There is no left ventricular hypertrophy. Left ventricular systolic function is moderately decreased. EF = 34 ? ?5% (2D biplane) Definity contrast used for endocardial border detection. Grade III left ventricular diastolic dysfunction. - The right ventricle is normal in size. Right ventricular systolic function is normal. - The patient has not had a prior CC echocardiographic exam for comparison. ? Component Latest Ref Rng AND Units 10/31/2017 Protein, Total 6.3 - 8.0 g/dL 7.1 Albumin 3.9 - 4.9 g/dL 4.0 Calcium 8.5 - 10.2 mg/dL 9.8 Bilirubin, Total 0.2 - 1.3 mg/dL 0.7 Alkaline Phosphatase 36 - 108 U/L 97 AST 14 - 40 U/L 23 Glucose 74 - 99 mg/dL 126 (H) BUN 9 - 24 mg/dL 15 Creatinine 0.73 - 1.22 mg/dL 0.88 Sodium 136 - 144 mmol/L 136 Potassium 3.7 - 5.1 mmol/L 4.6 Chloride 97 - 105 mmol/L 97 CO2 22 - 30 mmol/L 26 Anion Gap 9 - 18 mmol/L 13 ALT 10 - 54 U/L 25 eGFR- >60 eGFR-All Other Races . >60 Cholesterol, Total <200 mg/dL 185 Triglyceride <150 mg/dL 97 HDL Cholesterol >39 mg/dL 25 (L) LDL Cholesterol <100 mg/dL 141 (H) Non HDL Cholesterol <130 mg/dL 160 (H) Fasting Time hrs 13 VLDL Cholesterol <30 mg/dL 19 TC:HDL Ratio <5.10 7.40 (H) LDL:HDL Ratio <2.54 5.64 (H) Hemoglobin A1C 4.3 - 5.6 % 6.9 (H) Estimated Average Glucose mg/dL 151 ASSESSMENT/PLAN: 1. Essential hypertension - ICD9: 401.9, ICD10: I10 (primary diagnosis) - good control - Continue current medication(s) - Encouraged dietary sodium restriction/DASH diet - Recommended regular aerobic exercise. - Recommend home blood pressure monitoring, to bring results in on next visit - Discussed need and benefit for weight loss. - BASIC METABOLIC PNL 2. Chronic combined systolic and diastolic CHF (congestive heart failure) (HCC) - ICD9: 428.42, 428.0, ICD10: I50.42 - Much improved, continue with plan to see cardiology in December. F/u in 1 month, get bmp prior. Letter for DOT given. Danae Anderson APRN.WATCH MANUFACTURING SUPERVISOR Referring Provider: MARÍA MCCARTNEY [[id number]] Allergies As of Date: 11/14/2017 (No Known Allergies) Date Reviewed: 11/14/2017 Reviewed by: Rupa Nguyễn Alterations Manager - Fully Assessed Reason for Visit: Blood Pressure [15] Primary Visit Diagnosis:Essential hypertension [I10] Other Visit Diagnosis:Chronic combined systolic and diastolic CHF (congestive heart failure) (HCC) [I50.42] Order(s):BASIC METABOLIC PNL [SQBMP] Order #: [id number] FUTURE Prescriptions as of 11/14/2017 Sig: FUROSEMIDE 20 MG TABLET Take 2 tablets by mouth once * LISINOPRIL 20 MG TABLET Take 1.5 tablets by mouth onc* METFORMIN 500 MG TABLET Take 2 tablets by mouth twice* ATORVASTATIN 40 MG TABLET Take 1 tablet by mouth daily * METOPROLOL SUCCINATE ER 50 MG* Take 1 tablet by mouth once d* COMPOUNDED PRESCRIPTION Knee High Compression Stockin* POTASSIUM CHLORIDE ER 20 MEQ * Take 20 mEq by mouth once yohan* IPRATROPIUM 20 MCG-ALBUTEROL * Inhale 1 Puff as instructed a* CPAP Initiate Auto PAP @ 5- 20 cm o* Problem List As Of Date 11/14/2017 Noted Resolved Hypertension [I10] INVALID FOR* Venous insufficiency [I87.2] INVALID FOR* CURTIS (obstructive sleep apnea) [G47.33] INVALID FOR* Cardiac LV ejection fraction 21-30% [R93.1] INVALID FOR* Type 2 diabetes mellitus without complication, *INVALID FOR* Hyperlipidemia, mixed [E78.2] INVALID FOR* Disposition: Return if symptoms worsen or fail to improve. Follow-up and Disposition History Recorded Letter Text Danae Anderson CNP [address], [place] [address] 11/14/2017 Kenia Trivedi CCF# [id number] [address] [place] [address] [place] [address] TO WHOM IT MAY CONCERN: This is to certify that Mr. Kenia Trivedi has been under my care for hypertension. We have been having numerous and frequent encounters to decrease his blood pressure. At this time, his blood pressure is controlled in office at 130/89. He has been getting better readings at home. We have increased his medications and have seen dramatic improvement. Sincerely yours, Danae Anderson CNP Encounter Status:Closed by DANAE ANDERSON CNP on 11/14/17 CNOV Observed: 11/07/2017 Status: COMPLETED Source: [place] 2:[address] [facility] REPOSITORY Office Visit (CARDWS) KENIA TRIVEDI ([id number]) 1965 M Date Time Provider Department 11/07/17 2:30 PM ECHOCARDIOGRAM [facility] CARDWS During your visit today, we recorded the following information about you: Krista Norton RN 11/07/2017 2:55 PM Signed #[id number] hep lock started rt ac x1 attempt, no redness swelling or bleeding noted at insertion site. Flushed with 5ml normal saline without difficulty. opsite dressing applied. Pt tolerated procedure without distress. Total of 3ml definity given and flushed with 5 ml normal saline upon completion, lot # [id number]. Pt tolerated medication without distress. Hep lock removed, catheter intact, no redness, swelling or pain at site. 2x2 gauze dressing applied with paper tape. Pt tolerated procedure without distress. Krista Norton RN Referring Provider: DANAE ANDERSON ([facility]) [[id number]] Allergies As of Date: 11/07/2017 (No Known Allergies) Date Reviewed: 11/07/2017 Reviewed by: Rupa Nguyễn Alterations Manager - Fully Assessed Visit Diagnosis:Cardiac LV ejection fraction 21-30% [R93.1] Order(s):ECHO [[id number]] Order #: [id number]. #:[id number]: 1 IV START - SPECIFY [[id number]] Order #: [id number]: 1 SALINE LOCK DISCONTINUE [[id number]] Order #: [id number]: 1 [] perflutren lipid microspheres (DEFINITY) 1.1 mg/mL injectionInject 1.3 mL intravenously one time only for 1 dose.Disp: 1.3 mLRfl: 0 Prescriptions as of 11/07/2017 Sig: LISINOPRIL 20 MG TABLET Take 1.5 tablets by mouth onc* PERFLUTREN LIPID MICROSPHERES* Inject 1.3 mL intravenously o* METFORMIN 500 MG TABLET Take 2 tablets by mouth twice* ATORVASTATIN 40 MG TABLET Take 1 tablet by mouth daily * METOPROLOL SUCCINATE ER 50 MG* Take 1 tablet by mouth once d* COMPOUNDED PRESCRIPTION Knee High Compression Stockin* X LISINOPRIL 20 MG TABLET Take 1 tablet by mouth once d* X FUROSEMIDE 20 MG TABLET Take 1 tablet by mouth once d* POTASSIUM CHLORIDE ER 20 MEQ * Take 20 mEq by mouth once yohan* IPRATROPIUM 20 MCG-ALBUTEROL * Inhale 1 Puff as instructed a* CPAP Initiate Auto PAP @ 5- 20 cm o* Problem List As Of Date 11/07/2017 Noted Resolved Hypertension [I10] INVALID FOR* Venous insufficiency [I87.2] INVALID FOR* CURTIS (obstructive sleep apnea) [G47.33] INVALID FOR* Cardiac LV ejection fraction 21-30% [R93.1] INVALID FOR* Type 2 diabetes mellitus without complication, *INVALID FOR* Hyperlipidemia, mixed [E78.2] INVALID FOR* Visit Notes: >> Krista oNrton RN [facility] Nov 07, 2017 2:55 PM Status: Signed #22g hep lock started rt ac x1 attempt, no redness swelling or bleeding noted at insertion site. Flushed with 5ml normal saline without difficulty. opsite dressing applied. Pt tolerated procedure without distress. Total of 3ml definity given and flushed with 5 ml normal saline upon completion, lot # [id number]. Pt tolerated medication without distress. Hep lock removed, catheter intact, no redness, swelling or pain at site. 2x2 gauze dressing applied with paper tape. Pt tolerated procedure without distress. Krista Norton RN Prescriptions ordered this encounter Disp Refills Start End PERFLUTREN LIPID MICROSPHERES 1.1 MG* 1.3 * 0 11/07/2017 11/07/2017 Class: In Office Route: INTRAVENOUS Sig: Inject 1.3 mL intravenously one time only for 1 dose. Follow-up and Disposition History Recorded Encounter Status:Closed by KRISTA NORTON RN on 11/08/17 CNOV Observed: 11/07/2017 Status: COMPLETED Source: [place] 12:[address] [facility] REPOSIT[facility] Office Visit (FAMPWS) KENIA TRIVEDI ([id number]) 1965 M Date Time Provider Department 11/07/17 12:40 PM DANAE ANDERSON ([facility]) FAMPWS During your visit today, we recorded the following information about you: Blood pressure Weight 163/100 117 kg Danae Anderson APRN.CNP 11/07/2017 12:35 PM Signed Kenia Salmeron Farooq is a 52 year old male who presents in follow up of HTN and was last seen 1 week ago. Also had a finding of elevated Hgb A1c of 6.9%. Was started on Metformin 500 mg but has not started. Within the past week, he has cut out his mountain dew intake. He was intaking 6-7 per day. His father and sister have diabetes. 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 HTN: Mr. Trivedi indicates that he is feeling well and denies any symptoms referable to elevated blood pressure. Specifically denies headache, chest pain, palpitations, dyspnea and peripheral edema. Patient denies any side effects of his medication(s) and is compliant with their regimen. He does check BP's away from this office with average BP's in the 153/82 is the best readings. He also had some 170/80s range. Kenia gets sporadic irregular exercise. He watches his diet for sodium, low fat and low cholesterol some of the time. Last 3 Encounter BP Readings: Date: BP: 11/07/2017 163/100 10/31/2017 190/110 07/20/2016 152/90 Past Medical, Surgical, Family and Social Histories reviewed and updated today in the History tab of [facility]. Current Medications and allergies reviewed. PAST MEDICAL HISTORY Diagnosis Date - Essential hypertension, benign PAST SURGICAL HISTORY Procedure Laterality Date - NONE ACTIVE PROBLEM LIST Hypertension Venous Insufficiency Curtis (Obstructive Sleep Apnea) Cardiac Lv Ejection Fraction 21-30% Type 2 Diabetes Mellitus Without Complication, Without Long- Term Current Use of Insulin ([facility]) Hyperlipidemia, Mixed ALLERGIES: Patient has no known allergies. Current Outpatient Prescriptions: atorvastatin (LIPITOR) 40 mg tablet Take 1 tablet by mouth daily at bedtime. For cholesterol. lisinopril (ZESTRIL, PRINIVIL) 20 mg tablet Take 1 tablet by mouth once daily. metoprolol succinate ER (TOPROL XL) 50 mg 24 hr tablet Take 1 tablet by mouth once daily. COMPOUNDED PRESCRIPTION Knee High Compression Stockings 15- 20 mm, DX: Venous insufficiency and edema furosemide (LASIX) 20 mg tablet Take 1 tablet by mouth once daily. potassium chloride ER (KLOR-CON M20) 20 mEq tablet Take 20 mEq by mouth once daily. ipratropium-albuterol (COMBIVENT RESPIMAT) 20-100 mcg/actuation mist Inhale 1 Puff as instructed as needed. CPAP Initiate Auto PAP @ 5-20 cm of water with humidification. Mask (per patient preference) optional chin strap (if indicated) , filters, tubing, humidifier and lifetime supplies. With Nocturnal Oximetry. metFORMIN (GLUCOPHAGE) 500 mg tablet Take 2 tablets by mouth twice daily with meals. Begin with 1 tablet daily for one week and then increase to one table twice daily. No current facility-administered medications for this visit. FAMILY HISTORY Problem Relation Age of Onset - Hypertension Father - Cancer Paternal Grandmother brain cancer - Cancer Paternal Grandfather brain cancer Social History Marital status: Single Spouse name: Years of education: 12th grade Number of children: 1 Occupational History Occupation Employer Comment [employer] Social History Main Topics Smoking status: Current Every Day Smoker Packs/day: 1.00 Years: 20.00 Types: Cigarettes Last attempt to quit: 06/02/2016 Smokeless tobacco: Former User Comment: used to chew occasionally Alcohol use: Yes Comment: occasional Drug use: No Sexual activity: Yes Partners with: Female PHYSICAL EXAM: BP 163/100 (BP Site: Left Arm) Wt 117 kg (258 lb) BMI 39.23 kg/m? General appearance: Alert, cooperative, pleasant, in no acute distress, overweight Head: Normocephalic, atraumatic Eyes: normal, conjunctiva/corneas normal, PERRL Oropharynx: moist without lesions, teeth in good repair Neck: normal, supple, no adenopathy and thyroid normal size, non-tender, without nodularity Heart: normal, regular rate and rhythm, without murmur Lungs: clear to auscultation, without rales or wheeze, good air exchange Abdomen:soft, nondistended, nontender, no hepatosplenomegaly or masses Ext: no edema in LE bilaterally, good distal pulses Component Latest Ref Rng AND Units 10/31/2017 Protein, Total 6.3 - 8.0 g/dL 7.1 Albumin 3.9 - 4.9 g/dL 4.0 Calcium 8.5 - 10.2 mg/dL 9.8 Bilirubin, Total 0.2 - 1.3 mg/dL 0.7 Alkaline Phosphatase 36 - 108 U/L 97 AST 14 - 40 U/L 23 Glucose 74 - 99 mg/dL 126 (H) BUN 9 - 24 mg/dL 15 Creatinine 0.73 - 1.22 mg/dL 0.88 Sodium 136 - 144 mmol/L 136 Potassium 3.7 - 5.1 mmol/L 4.6 Chloride 97 - 105 mmol/L 97 CO2 22 - 30 mmol/L 26 Anion Gap 9 - 18 mmol/L 13 ALT 10 - 54 U/L 25 eGFR- >60 eGFR-All Other Races . >60 Cholesterol, Total <200 mg/dL 185 Triglyceride <150 mg/dL 97 HDL Cholesterol >39 mg/dL 25 (L) LDL Cholesterol <100 mg/dL 141 (H) Non HDL Cholesterol <130 mg/dL 160 (H) Fasting Time hrs 13 VLDL Cholesterol <30 mg/dL 19 TC:HDL Ratio <5.10 7.40 (H) LDL:HDL Ratio <2.54 5.64 (H) Hemoglobin A1C 4.3 - 5.6 % 6.9 (H) Estimated Average Glucose mg/dL 151 ASSESSMENT/PLAN: 1. Essential hypertension - ICD9: 401.9, ICD10: I10 (primary diagnosis) - poor control - Increase lisinopril (Zestril/Prinivil) - Recommended regular aerobic exercise. - Recommend home blood pressure monitoring, to bring results in on next visit - Goal of BP <130/80 - LISINOPRIL 20 MG TABLET 2. Type 2 diabetes mellitus without complication, without long-term current use of insulin (HCC) - ICD9: 250.00, ICD10: E11.9 newly diagnosed - Discussed getting eye exam. - Hand out for diabetes given to patient. - ALBUMIN/CREAT RATIO RND UR - We will follow up in 1 month to see his progress. F/u in 1 week for BP check. FRANCOISE Orantes APRN.CNP 11/07/2017 12:25 PM Signed Eventually, we should get an eye exam completed, needing to be a diabetic eye exam with dilation. We will also get urine for urine albumin completed. We should follow up a repeat blood pressure next Tuesday with a nurse. Danae Anderson APRN.CNP Referring Provider: DANAE ANDERSON ([facility]) [[id number]] Allergies As of Date: 11/07/2017 (No Known Allergies) Date Reviewed: 11/07/2017 Reviewed by: Rupa Nguyễn Alterations Manager - Fully Assessed Reason for Visit: Blood Pressure [15] Cmt: 1 week follow up Primary Visit Diagnosis:Essential hypertension [I10] Other Visit Diagnosis:Type 2 diabetes mellitus without complication, without long-term current use of insulin (HCC) [E11.9] Order(s):lisinopril (ZESTRIL, PRINIVIL) 20 mg tabletTake 1.5 tablets by mouth once daily.Disp: 30 tabletRfl: 2 ALBUMIN/CREAT RATIO RND UR [SQUACR] Order #: [id number] FUTURE Prescriptions as of 11/07/2017 Sig: LISINOPRIL 20 MG TABLET Take 1.5 tablets by mouth onc* ATORVASTATIN 40 MG TABLET Take 1 tablet by mouth daily * METOPROLOL SUCCINATE ER 50 MG* Take 1 tablet by mouth once d* COMPOUNDED PRESCRIPTION Knee High Compression Stockin* FUROSEMIDE 20 MG TABLET Take 1 tablet by mouth once d* POTASSIUM CHLORIDE ER 20 MEQ * Take 20 mEq by mouth once yohan* IPRATROPIUM 20 MCG-ALBUTEROL * Inhale 1 Puff as instructed a* CPAP Initiate Auto PAP @ 5- 20 cm o* METFORMIN 500 MG TABLET Take 2 tablets by mouth twice* Problem List As Of Date 11/07/2017 Noted Resolved Hypertension [I10] INVALID FOR* Venous insufficiency [I87.2] INVALID FOR* CURTIS (obstructive sleep apnea) [G47.33] INVALID FOR* Cardiac LV ejection fraction 21-30% [R93.1] INVALID FOR* Type 2 diabetes mellitus without complication, *INVALID FOR* Hyperlipidemia, mixed [E78.2] INVALID FOR* Other instructions from your clinician: Eventually, we should get an eye exam completed, needing to be a diabetic eye exam with dilation. We will also get urine for urine albumin completed. We should follow up a repeat blood pressure next Tuesday with a nurse. Danae Anderson APRN.ARCELIA Prescriptions ordered this encounter Disp Refills Start End LISINOPRIL 20 MG TABLET 30 t* 2 11/07/2017 Class: Med Update Route: ORAL Sig: Take 1.5 tablets by mouth once daily. Medications Discontinued During This Encounter lisinopril (ZESTRIL, PRINIVIL) 20 mg* 30 t* 2 10/31/2017 11/07/2017 Route: ORAL Sig: Take 1 tablet by mouth once daily. Disc: Reason for discontinue is not on file. Disposition: Return in about 1 week (around 11/14/2017) for BP check with nurse. Follow-up and Disposition History Recorded Encounter Status:Closed by DANAE ANDERSON CNP on 11/07/17 PROGRESS Observed: 11/07/2017 Status: COMPLETED Source: [place] 12:10 PM [facility] REPOSITORY O ID: [id number] Author: Danae Anderson Service: (none) Author Type: Nurse Practitioner Type: Progress Notes Filed: 11/07/2017 12:35 PM Note Text: Kenia Trivedi is a 52 year old male who presents in follow up of HTN and was last seen 1 week ago. Also had a finding of elevated Hgb A1c of 6.9%. Was started on Metformin 500 mg but has not started. Within the past week, he has cut out his mountain dew intake. He was intaking 6-7 per day. His father and sister have diabetes. 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 HTN: Mr. Trivedi indicates that he is feeling well and denies any symptoms referable to elevated blood pressure. Specifically denies headache, chest pain, palpitations, dyspnea and peripheral edema. Patient denies any side effects of his medication(s) and is compliant with their regimen. He does check BP's away from this office with average BP's in the 153/82 is the best readings. He also had some 170/80s range. Kenia gets sporadic irregular exercise. He watches his diet for sodium, low fat and low cholesterol some of the time. Last 3 Encounter BP Readings: Date: BP: 11/07/2017 163/100 10/31/2017 190/110 07/20/2016 152/90 Past Medical, Surgical, Family and Social Histories reviewed and updated today in the History tab of [facility]. Current Medications and allergies reviewed. PAST MEDICAL HISTORY Diagnosis Date - Essential hypertension, benign PAST SURGICAL HISTORY Procedure Laterality Date - NONE ACTIVE PROBLEM LIST Hypertension Venous Insufficiency Curtis (Obstructive Sleep Apnea) Cardiac Lv Ejection Fraction 21-30% Type 2 Diabetes Mellitus Without Complication, Without Long- Term Current Use of Insulin (Hcc) Hyperlipidemia, Mixed ALLERGIES: Patient has no known allergies. Current Outpatient Prescriptions: atorvastatin (LIPITOR) 40 mg tablet Take 1 tablet by mouth daily at bedtime. For cholesterol. lisinopril (ZESTRIL, PRINIVIL) 20 mg tablet Take 1 tablet by mouth once daily. metoprolol succinate ER (TOPROL XL) 50 mg 24 hr tablet Take 1 tablet by mouth once daily. COMPOUNDED PRESCRIPTION Knee High Compression Stockings 15- 20 mm, DX: Venous insufficiency and edema furosemide (LASIX) 20 mg tablet Take 1 tablet by mouth once daily. potassium chloride ER (KLOR-CON M20) 20 mEq tablet Take 20 mEq by mouth once daily. ipratropium-albuterol (COMBIVENT RESPIMAT) 20-100 mcg/actuation mist Inhale 1 Puff as instructed as needed. CPAP Initiate Auto PAP @ 5-20 cm of water with humidification. Mask (per patient preference) optional chin strap (if indicated) , filters, tubing, humidifier and lifetime supplies. With Nocturnal Oximetry. metFORMIN (GLUCOPHAGE) 500 mg tablet Take 2 tablets by mouth twice daily with meals. Begin with 1 tablet daily for one week and then increase to one table twice daily. No current facility-administered medications for this visit. FAMILY HISTORY Problem Relation Age of Onset - Hypertension Father - Cancer Paternal Grandmother brain cancer - Cancer Paternal Grandfather brain cancer Social History Marital status: Single Spouse name: Years of education: 12th grade Number of children: 1 Occupational History Occupation Employer Comment [employer] Social History Main Topics Smoking status: Current Every Day Smoker Packs/day: 1.00 Years: 20.00 Types: Cigarettes Last attempt to quit: 06/02/2016 Smokeless tobacco: Former User Comment: used to chew occasionally Alcohol use: Yes Comment: occasional Drug use: No Sexual activity: Yes Partners with: Female PHYSICAL EXAM: BP 163/100 (BP Site: Left Arm) Wt 117 kg (258 lb) BMI 39.23 kg/m? General appearance: Alert, cooperative, pleasant, in no acute distress, overweight Head: Normocephalic, atraumatic Eyes: normal, conjunctiva/corneas normal, PERRL Oropharynx: moist without lesions, teeth in good repair Neck: normal, supple, no adenopathy and thyroid normal size, non-tender, without nodularity Heart: normal, regular rate and rhythm, without murmur Lungs: clear to auscultation, without rales or wheeze, good air exchange Abdomen:soft, nondistended, nontender, no hepatosplenomegaly or masses Ext: no edema in LE bilaterally, good distal pulses Component Latest Ref Rng AND Units 10/31/2017 Protein, Total 6.3 - 8.0 g/dL 7.1 Albumin 3.9 - 4.9 g/dL 4.0 Calcium 8.5 - 10.2 mg/dL 9.8 Bilirubin, Total 0.2 - 1.3 mg/dL 0.7 Alkaline Phosphatase 36 - 108 U/L 97 AST 14 - 40 U/L 23 Glucose 74 - 99 mg/dL 126 (H) BUN 9 - 24 mg/dL 15 Creatinine 0.73 - 1.22 mg/dL 0.88 Sodium 136 - 144 mmol/L 136 Potassium 3.7 - 5.1 mmol/L 4.6 Chloride 97 - 105 mmol/L 97 CO2 22 - 30 mmol/L 26 Anion Gap 9 - 18 mmol/L 13 ALT 10 - 54 U/L 25 eGFR- >60 eGFR-All Other Races . >60 Cholesterol, Total <200 mg/dL 185 Triglyceride <150 mg/dL 97 HDL Cholesterol >39 mg/dL 25 (L) LDL Cholesterol <100 mg/dL 141 (H) Non HDL Cholesterol <130 mg/dL 160 (H) Fasting Time hrs 13 VLDL Cholesterol <30 mg/dL 19 TC:HDL Ratio <5.10 7.40 (H) LDL:HDL Ratio <2.54 5.64 (H) Hemoglobin A1C 4.3 - 5.6 % 6.9 (H) Estimated Average Glucose mg/dL 151 ASSESSMENT/PLAN: 1. Essential hypertension - ICD9: 401.9, ICD10: I10 (primary diagnosis) - poor control - Increase lisinopril (Zestril/Prinivil) - Recommended regular aerobic exercise. - Recommend home blood pressure monitoring, to bring results in on next visit - Goal of BP <130/80 - LISINOPRIL 20 MG TABLET 2. Type 2 diabetes mellitus without complication, without long-term current use of insulin (HCC) - ICD9: 250.00, ICD10: E11.9 newly diagnosed - Discussed getting eye exam. - Hand out for diabetes given to patient. - ALBUMIN/CREAT RATIO RND UR - We will follow up in 1 month to see his progress. F/u in 1 week for BP check. Danae Anderson APRN.ARCELIA PANIAGUAN Observed: 11/01/2017 Status: COMPLETED Source: [place] 12:[address] [facility] KENIA TRIVEDI ([id number]) 1965 M Date Time Provider Department 11/01/17 DANAE ANDERSON ([facility]) EDGARDO During your visit today, we recorded the following information about you: Reuben Richards 11/01/2017 11:54 AM Signed Patient calls with concern of starting metformin. Says his dad had been on it for a long time causing damage to his kidneys. Please advise. Told patient this could probably be discussed at upcoming appt 11/07/17. 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 Metformin does not cause kidney damage but has to be stopped if having kidney injury. His metabolic profile showed no kidney injury. Metformin is a safe, starting medication for newly diagnosed diabetics. FRANCOISE Orantes Cma 11/01/2017 12:05 PM Signed Called patient, mailbox is full, un able to leave Rupa Nguyễn Cma Richard Erickson RN 11/01/2017 12:17 PM Signed Patient returned call and given provider's message below with verbalized understanding. Allergies As of Date: 11/01/2017 (No Known Allergies) Date Reviewed: 10/31/2017 Reviewed by: Danae García) Evans - Fully Assessed Reason for Visit: concern [Other] Prescriptions as of 11/01/2017 Sig: METFORMIN 500 MG TABLET Take 2 tablets by mouth twice* ATORVASTATIN 40 MG TABLET Take 1 tablet by mouth daily * LISINOPRIL 20 MG TABLET Take 1 tablet by mouth once d* METOPROLOL SUCCINATE ER 50 MG* Take 1 tablet by mouth once d* COMPOUNDED PRESCRIPTION Knee High Compression Stockin* FUROSEMIDE 20 MG TABLET Take 1 tablet by mouth once d* POTASSIUM CHLORIDE ER 20 MEQ * Take 20 mEq by mouth once yohan* IPRATROPIUM 20 MCG-ALBUTEROL * Inhale 1 Puff as instructed a* CPAP Initiate Auto PAP @ 5- 20 cm o* Problem List As Of Date 11/01/2017 Noted Resolved Hypertension [I10] INVALID FOR* Venous insufficiency [I87.2] INVALID FOR* CURTIS (obstructive sleep apnea) [G47.33] INVALID FOR* Cardiac LV ejection fraction 21-30% [R93.1] INVALID FOR* Type 2 diabetes mellitus without complication, *INVALID FOR* Hyperlipidemia, mixed [E78.2] INVALID FOR* Encounter Status:Closed by RUPA NGUYỄN CMA on 11/01/17 HEMOGLOBIN A1C Collected: 10/31/2017 Status: F Source: [place] 11:[address] [facility] REPOS[facility] TYPE CODE TESTS RESULT OUT OF REFERENCE UNITS RANGE LAB HGBA1C 4.3-5.6 % High Hemoglobin A1c 6.9 LAB HBA0 mg/dL Est. Average Glucose 151 Result Comment: eAG: (Estimated average glucose) is a calculated value from HgbA1c and is business banking representative of the average blood glucose level in the last 2-3 month period. Performed By: #### HBA1C, LIPB #### [facility] [address] [address] LIPID PANEL, BASIC Collected: 10/31/2017 Status: F Source: [place] 11:[address] [facility] REPOS[facility] TYPE CODE TESTS RESULT OUT OF REFERENCE UNITS RANGE LAB CHOL <200 mg/dL Cholesterol 185 Result Comment: <200 mg/dL, Desirable 200-239 mg/dL, Borderline high >239 mg/dL, High LAB TRIGLY <150 mg/dL Triglyceride 97 Result Comment: <150 mg/dL, Normal 150-199 mg/dL, Borderline high 200-499 mg/dL, High >499 mg/dL, Very high LAB HDL >39 mg/dL HDL-Cholesterol Low 25 Result Comment: 40-59 mg/dL, Acceptable >59 mg/dL, High: Negative risk factor for coronary heart disease <40 mg/dL, Low: Positive risk factor for coronary heart disease LAB LDL <100 mg/dL LDL-Cholesterol High 141 Result Comment: <100 mg/dL, Optimal 100-129 mg/dL, Near optimal/above optimal 130-159 mg/dL, Borderline high 160-189 mg/dL, High >189 mg/dL, Very high Secondary prevention optimal LDL Cholesterol levels are recommended to be < 70 mg/dL LAB NONHDL <130 mg/dL Non HDL High Cholesterol 160 Result Comment: <130 mg/dL, Optimal 130-159 mg/dL, Near optimal/above optimal 160-189 mg/dL, Borderline high 190-219 mg/dL, High >219 mg/dL, Very high Secondary prevention optimal non HDL Cholesterol levels are recommended to be < 100 mg/dL LAB FT hrs Fasting Time 13 LAB VLDL <30 mg/dL VLDL Cholesterol 19 LAB TCHDL <5.10 High TC:HDL Ratio 7.40 LAB LDLHDL <2.54 High LDL:HDL Ratio 5.64 Result Comment: Reference: 1. National Cholesterol Education Program ATP III Guideline At-A-Glance Quick Desk Reference: National Heart, Lung, and Blood [place]. National Institutes of Health. 2001: NIH Publication No. 01-3305. 2. An International Atherosclerosis Society position paper: global recommendations for the management of dyslipidemia: executive summary, Atherosclerosis. 2014: 232(2):410-413. Performed By: #### HBA1C, LIPB #### [facility] [address] [place], [place] [address] COMP METABOLIC PANEL Collected: 10/31/2017 Status: F Source: [place] 11:11 AM [facility] REPOSITORY TYPE CODE TESTS RESULT OUT OF REFERENCE UNITS RANGE LAB TP 6.3-8.0 g/dL Protein, Total 7.1 LAB ALB 3.9-4.9 g/dL Albumin 4.0 LAB CA 8.5-10.2 mg/dL Calcium, Total 9.8 LAB TBIL 0.2-1.3 mg/dL Bilirubin, Total 0.7 LAB ALKP 36-108 U/L Alkaline Phosphatase 97 LAB AST 14-40 U/L AST 23 LAB GLU 74-99 mg/dL Glucose High 126 Result Comment: The [place] Diabetes Association (ADA) provides guidance for cutoff values for fasting glucose and random glucose. The ADA defines fasting as no caloric intake for at least 8 hours. Fas ting plasma glucose results between 100 to 125 mg/dL indicate increased risk for diabetes (prediabetes). Fasting plasma glucose results greater than or equal to 126 mg/dL meet the criteria for diagnosis of diabetes. In the absence of unequivocal hyperglycemia, results should be confirmed by repeat testing. In a patient with classic symptoms of hyperglycemia or hyperglycemic crisis, random plasma glucose results greater than or equal to 200 mg/dL meet the criteria for diagnosis of diabetes. Reference: Standards of Medical Care in Diabetes 2016, [place] Diabetes Association. Diabetes Care. 2016.39(Suppl 1). LAB BUN 9-24 mg/dL BUN 15 LAB CRET 0.73-1.22 mg/dL Creatinine 0.88 LAB NA 136-144 mmol/L Sodium 136 LAB K 3.7-5.1 mmol/L Potassium 4.6 LAB CL 97-105 mmol/L Chloride 97 LAB CO2 22-30 mmol/L CO2 26 LAB AGAP 9-18 mmol/L Anion Gap 13 LAB ALT 10-54 U/L ALT 25 LAB GFRAA eGFR- Amer. >60 LAB GFRNAA . eGFR-All Other Races >60 Result Comment: eGFR (Estimated GFR) Units of measure: mL/min/1.73 meters squared eGFR is derived from the reexpressed MDRD Study equation using the following parameters: serum creatinine, age, gender and race. The creatinine assay has been calibrated to be traceable to IDMS. An eGFR <60 mL/min/1.73m2 for >3 months is consistent with chronic kidney disease. Refer to KDOQI guidelines for clinical interpretation. In patients with unstable renal function, e.g. those with acute kidney injury, the eGFR may not accurately reflect actual GFR. Performed By: #### CMP #### [facility] [address] [address] CNOV Observed: 10/31/2017 Status: COMPLETED Source: [place] 10:[address] [facility] RE[facility] Office Visit ([facility]) KENIA TRIVEDI ([id number]) 1965 M Date Time Provider Department 10/31/17 10:20 AM DANAE ANDERSON ([facility]) [facility] During your visit today, we recorded the following information about you: Pulse Blood pressure Weight 90/minute 190/110 117.9 kg Danae Anderson APRN.CNP 10/31/2017 10:50 AM Signed Chief Complaint Patient presents with: Refill Request HPI Kenia Trivedi is a 52 year old male who presents here today for Above Complaints. Patient presents to the office for refill of his medications. Was previously under the care of a caser shoe parts for heart failure, had a LV EF of 21-30%, but has been since released. This occurred when he has a bout of pneumonia. 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 Does not have a diagnosis of COPD or asthma. Current medications include metoprolol xl 25 mg daily, lisinopril 20 mg daily. I have no recent lab results available for my review. At this time, the patient stopped his lipitor and Lasix as he ran out of them and did not have any refills (approximately 1.5 years ago). Does not check his BP at home. 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 He denies any chest pain. Does have slower foot edema that has been long standing. Has a diagnosis of venous insufficiency but does not wear his compression stockings. Does not feel more short of breath than usual. No abnormal weight gain. No orthopnea. Past medical history, appointments, medications, allergies reviewed. Previous Medical History PAST MEDICAL HISTORY Diagnosis Date - Essential hypertension, benign Previous Surgical History PAST SURGICAL HISTORY Procedure Laterality Date - NONE Family History FAMILY HISTORY Problem Relation Age of Onset - Hypertension Father - Cancer Paternal Grandmother brain cancer - Cancer Paternal Grandfather brain cancer Patient Allergies ALLERGIES No Known Allergies Current Medications Current Outpatient Prescriptions on File Prior to Visit: lisinopril (ZESTRIL, PRINIVIL) 20 mg tablet Take 1 tablet by mouth once daily. metoprolol succinate ER (TOPROL XL) 25 mg 24 hr tablet Take 1 tablet by mouth once daily. potassium chloride ER (KLOR-CON M20) 20 mEq tablet Take 20 mEq by mouth once daily. furosemide (LASIX) 20 mg tablet Take 20 mg by mouth once daily. atorvastatin (LIPITOR) 80 mg tablet Take 80 mg by mouth once daily. ipratropium-albuterol (COMBIVENT RESPIMAT) 20-100 mcg/actuation mist Inhale 1 Puff as instructed as needed. CPAP Initiate Auto PAP @ 5-20 cm of water with humidification. Mask (per patient preference) optional chin strap (if indicated) , filters, tubing, humidifier and lifetime supplies. With Nocturnal Oximetry. COMPOUNDED PRESCRIPTION Knee High Compression Stockings 15- 20 mm, DX: Venous insufficiency and edema No current facility-administered medications on file prior to visit. Social History Social History Marital status: Single Spouse name: Years of education: 12th grade Number of children: 1 Occupational History Occupation Employer Comment [employer] Social History Main Topics Smoking status: Former Smoker Packs/day: 1.00 Years: 20.00 Types: Cigarettes Quit date: 06/02/2016 Smokeless tobacco: Former User Comment: used to chew occasionally Alcohol use: Yes Comment: occasional Drug use: No Sexual activity: Yes Partners with: Female REVIEW OF SYSTEMS: as above ? Reviewed relevant PMHx, PSHx, Social Hx, current medications and allergies. EXAM: BP 190/110 Pulse 90 Wt 117.9 kg (260 lb) SpO2 97% BMI 39.53 kg/m? General Appearance: Well appearing, alert, in no acute distress, well-hydrated, well nourished. and Overweight. Head: Normocephalic, no masses, lesions, tenderness or abnormalities. Eyes: Anicteric sclera. Pupils are equally round and reactive to light. Extraocular movements are intact. . Ears: External ears normal, canals clear. Nose/Sinuses: Nares normal, septum midline, mucosa normal, no drainage or sinus tenderness. Oropharynx: Lips, mucosa, and tongue normal, teeth and gums normal, oropharynx normal. Neck: Supple, no adenopathy; thyroid symmetric, normal size, no bruits. Lungs: Lungs clear to auscultation. No wheezing, rhonchi, rales. Heart: RRR without murmur, gallop, or rubs. No ectopy. Extremities: Pulses: 2+, Edema: Trace edema bilaterally. Peripheral Pulses: Normal, Pulses: radial=4/4, dorsalis pedis=4/4, posterior tibial=4/4. Health Maintenance List ANNUAL PCP TEAM CHRONIC DISEASE VISIT due on 1984 BLOOD PRESSURE CONTROLLED due on 1984 DTAP,TDAP,TD(1 - Tdap) due on 1985 ONE PNEUMOVAX PRIOR TO AGE 65 due on 1985 DIABETES SCREEN due on 2011 COLORECTAL CANCER SCREENING,SEE MODIFIER due on 2016 INFLUENZA(1) due on 11/19/2017 LIPID SCREEN due on 06/23/2021 Data reviewed External labs, 09/2016 reviewed. ASSESSMENT/PLAN: 1. Essential hypertension - ICD9: 401.9, ICD10: I10 (primary diagnosis) - poor control - Add furosemide (Lasix) - Increase metoprolol (Lopressor/Toprol) to 50 mg daily. - Encouraged dietary sodium restriction/DASH diet - Recommended regular aerobic exercise. - LISINOPRIL 20 MG TABLET - COMP METABOLIC PANEL - FUROSEMIDE 20 MG TABLET 2. Venous insufficiency - ICD9: 459.81, ICD10: I87.2 - Discussed using compression stockings daily. - COMPOUNDED PRESCRIPTION 3. Cardiac LV ejection fraction 21-30% - ICD9: 793.2, ICD10: R93.1 - Given that it has been greater than one year since last echo, elevated BP, I would like to re-evaluate his heart function to determine if he has heart failure. - COMP METABOLIC PANEL - ECHO - FUROSEMIDE 20 MG TABLET 4. Hyperlipidemia, unspecified hyperlipidemia type - ICD9: 272.4, ICD10: E78.5 - to be determined upon return of lab results - Encouraged following a low fat, low cholesterol diet. - Discussed the benefits of regular aerobic exercise and weight loss. - LIPID PANEL BASIC - Consider restarting Lipitor 80 mg daily based on results of labs. Get labs today, schedule echocardiogram., patient will follow up in office in 1 week for re-evaluation of blood pressure. Danae Anderson APRN.ARCELIA Referring Provider: MARÍA MCCARTNEY [[id number]] Allergies As of Date: 10/31/2017 (No Known Allergies) Date Reviewed: 10/31/2017 Reviewed by: Danae (Arcelia) Evans - Fully Assessed Reason for Visit: Refill Request [94] Primary Visit Diagnosis:Essential hypertension [I10] Other Visit Diagnoses:Venous insufficiency [I87.2] Cardiac LV ejection fraction 21-30% [R93.1] Hyperlipidemia, unspecified hyperlipidemia type [E78.5] Order(s):lisinopril (ZESTRIL, PRINIVIL) 20 mg tabletTake 1 tablet by mouth once daily.Disp: 30 tabletRfl: 2 metoprolol succinate ER (TOPROL XL) 50 mg 24 hr tabletTake 1 tablet by mouth once daily.Disp: 30 tabletRfl: 2 COMPOUNDED PRESCRIPTIONKnee High Compression Stockings 15-20 mm, DX: Venous insufficiency and edemaDisp: 4 EachRfl: 1 LIPID PANEL BASIC [SQLIPB] Order #: [id number] FUTURE COMP METABOLIC PANEL [SQCMP] Order #: [id number] FUTURE ECHO [[id number]] Order #: [id number]: 1 FUTURE furosemide (LASIX) 20 mg tabletTake 1 tablet by mouth once daily.Disp: 30 tabletRfl: 1 Prescriptions as of 10/31/2017 Sig: CPAP Initiate Auto PAP @ 5- 20 cm o* LISINOPRIL 20 MG TABLET Take 1 tablet by mouth once d* METOPROLOL SUCCINATE ER 50 MG* Take 1 tablet by mouth once d* COMPOUNDED PRESCRIPTION Knee High Compression Stockin* FUROSEMIDE 20 MG TABLET Take 1 tablet by mouth once d* POTASSIUM CHLORIDE ER 20 MEQ * Take 20 mEq by mouth once yohan* ATORVASTATIN 80 MG TABLET Take 80 mg by mouth once yeni* IPRATROPIUM 20 MCG-ALBUTEROL * Inhale 1 Puff as instructed a* Problem List As Of Date 10/31/2017 Noted Resolved Hypertension [I10] INVALID FOR* Venous insufficiency [I87.2] INVALID FOR* CURTIS (obstructive sleep apnea) [G47.33] INVALID FOR* Cardiac LV ejection fraction 21-30% [R93.1] INVALID FOR* Prescriptions ordered this encounter Disp Refills Start End LISINOPRIL 20 MG TABLET 30 t* 2 10/31/2017 Route: ORAL Sig: Take 1 tablet by mouth once daily. METOPROLOL SUCCINATE ER 50 MG TABLET* 30 t* 2 10/31/2017 Route: ORAL Sig: Take 1 tablet by mouth once daily. COMPOUNDED PRESCRIPTION 4 Ea* 1 10/31/2017 Class: Print RX Sig: Knee High Compression Stockings 15-20 mm, DX: Venous insufficiency and edema FUROSEMIDE 20 MG TABLET 30 t* 1 10/31/2017 Route: ORAL Sig: Take 1 tablet by mouth once daily. Medications Discontinued During This Encounter lisinopril (ZESTRIL, PRINIVIL) 20 mg* 30 t* 2 07/26/2017 10/31/2017 Route: ORAL Sig: Take 1 tablet by mouth once daily. Disc: Reason for discontinue is not on file. metoprolol succinate ER (TOPROL XL) * 30 t* 2 07/26/2017 10/31/2017 Route: ORAL Sig: Take 1 tablet by mouth once daily. Disc: Reason for discontinue is not on file. COMPOUNDED PRESCRIPTION 4 Ea* 1 05/14/2013 10/31/2017 Class: Print RX Sig: Knee High Compression Stockings 15-20 mm, DX: Venous insufficiency and edema Disc: Reason for discontinue is not on file. furosemide (LASIX) 20 mg tablet 10/31/2017 Class: Historical Med Route: ORAL Sig: Take 20 mg by mouth once daily. Disc: Reason for discontinue is not on file. Disposition: Return in about 1 week (around 11/07/2017) for BP check with ALYSHA Anderson. Follow-up and Disposition History Recorded Encounter Status:Closed by DANAE ANDERSON CNP on 10/31/17 PROGRESS Observed: 10/31/2017 Status: COMPLETED Source: [place] 10:[address] [facility] HNO ID: [id number] Author: Danae García) Evans Service: (none) Author Type: Nurse Practitioner Type: Progress Notes Filed: 10/31/2017 10:50 AM Note Text: Chief Complaint Patient presents with: Refill Request HPI Kenia Trivedi is a 52 year old male who presents here today for Above Complaints. Patient presents to the office for refill of his medications. Was previously under the care of a caser shoe parts for heart failure, had a LV EF of 21-30%, but has been since released. This occurred when he has a bout of pneumonia. 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 Does not have a diagnosis of COPD or asthma. Current medications include metoprolol xl 25 mg daily, lisinopril 20 mg daily. I have no recent lab results available for my review. At this time, the patient stopped his lipitor and Lasix as he ran out of them and did not have any refills (approximately 1.5 years ago). Does not check his BP at home. 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 He denies any chest pain. Does have slower foot edema that has been long standing. Has a diagnosis of venous insufficiency but does not wear his compression stockings. Does not feel more short of breath than usual. No abnormal weight gain. No orthopnea. Past medical history, appointments, medications, allergies reviewed. Previous Medical History PAST MEDICAL HISTORY Diagnosis Date - Essential hypertension, benign Previous Surgical History PAST SURGICAL HISTORY Procedure Laterality Date - NONE Family History FAMILY HISTORY Problem Relation Age of Onset - Hypertension Father - Cancer Paternal Grandmother brain cancer - Cancer Paternal Grandfather brain cancer Patient Allergies ALLERGIES No Known Allergies Current Medications Current Outpatient Prescriptions on File Prior to Visit: lisinopril (ZESTRIL, PRINIVIL) 20 mg tablet Take 1 tablet by mouth once daily. metoprolol succinate ER (TOPROL XL) 25 mg 24 hr tablet Take 1 tablet by mouth once daily. potassium chloride ER (KLOR-CON M20) 20 mEq tablet Take 20 mEq by mouth once daily. furosemide (LASIX) 20 mg tablet Take 20 mg by mouth once daily. atorvastatin (LIPITOR) 80 mg tablet Take 80 mg by mouth once daily. ipratropium-albuterol (COMBIVENT RESPIMAT) 20-100 mcg/actuation mist Inhale 1 Puff as instructed as needed. CPAP Initiate Auto PAP @ 5-20 cm of water with humidification. Mask (per patient preference) optional chin strap (if indicated) , filters, tubing, humidifier and lifetime supplies. With Nocturnal Oximetry. COMPOUNDED PRESCRIPTION Knee High Compression Stockings 15- 20 mm, DX: Venous insufficiency and edema No current facility-administered medications on file prior to visit. Social History Social History Marital status: Single Spouse name: Years of education: 12th grade Number of children: 1 Occupational History Occupation Employer Comment [employer] Social History Main Topics Smoking status: Former Smoker Packs/day: 1.00 Years: 20.00 Types: Cigarettes Quit date: 06/02/2016 Smokeless tobacco: Former User Comment: used to chew occasionally Alcohol use: Yes Comment: occasional Drug use: No Sexual activity: Yes Partners with: Female REVIEW OF SYSTEMS: as above ? Reviewed relevant PMHx, PSHx, Social Hx, current medications and allergies. EXAM: BP 190/110 Pulse 90 Wt 117.9 kg (260 lb) SpO2 97% BMI 39.53 kg/m? General Appearance: Well appearing, alert, in no acute distress, well-hydrated, well nourished. and Overweight. Head: Normocephalic, no masses, lesions, tenderness or abnormalities. Eyes: Anicteric sclera. Pupils are equally round and reactive to light. Extraocular movements are intact. . Ears: External ears normal, canals clear. Nose/Sinuses: Nares normal, septum midline, mucosa normal, no drainage or sinus tenderness. Oropharynx: Lips, mucosa, and tongue normal, teeth and gums normal, oropharynx normal. Neck: Supple, no adenopathy; thyroid symmetric, normal size, no bruits. Lungs: Lungs clear to auscultation. No wheezing, rhonchi, rales. Heart: RRR without murmur, gallop, or rubs. No ectopy. Extremities: Pulses: 2+, Edema: Trace edema bilaterally. Peripheral Pulses: Normal, Pulses: radial=4/4, dorsalis pedis=4/4, posterior tibial=4/4. Health Maintenance List ANNUAL PCP TEAM CHRONIC DISEASE VISIT due on 1984 BLOOD PRESSURE CONTROLLED due on 1984 DTAP,TDAP,TD(1 - Tdap) due on 1985 ONE PNEUMOVAX PRIOR TO AGE 65 due on 1985 DIABETES SCREEN due on 2011 COLORECTAL CANCER SCREENING,SEE MODIFIER due on 2016 INFLUENZA(1) due on 11/19/2017 LIPID SCREEN due on 06/23/2021 Data reviewed External labs, 09/2016 reviewed. ASSESSMENT/PLAN: 1. Essential hypertension - ICD9: 401.9, ICD10: I10 (primary diagnosis) - poor control - Add furosemide (Lasix) - Increase metoprolol (Lopressor/Toprol) to 50 mg daily. - Encouraged dietary sodium restriction/DASH diet - Recommended regular aerobic exercise. - LISINOPRIL 20 MG TABLET - COMP METABOLIC PANEL - FUROSEMIDE 20 MG TABLET 2. Venous insufficiency - ICD9: 459.81, ICD10: I87.2 - Discussed using compression stockings daily. - COMPOUNDED PRESCRIPTION 3. Cardiac LV ejection fraction 21-30% - ICD9: 793.2, ICD10: R93.1 - Given that it has been greater than one year since last echo, elevated BP, I would like to re-evaluate his heart function to determine if he has heart failure. - COMP METABOLIC PANEL - ECHO - FUROSEMIDE 20 MG TABLET 4. Hyperlipidemia, unspecified hyperlipidemia type - ICD9: 272.4, ICD10: E78.5 - to be determined upon return of lab results - Encouraged following a low fat, low cholesterol diet. - Discussed the benefits of regular aerobic exercise and weight loss. - LIPID PANEL BASIC - Consider restarting Lipitor 80 mg daily based on results of labs. Get labs today, schedule echocardiogram., patient will follow up in office in 1 week for re-evaluation of blood pressure. Danae Anderson APRN.ARCELIA CNPTOUTREACH Observed: 10/18/2017 Status: COMPLETED Source: [place] 12:[address] [facility] REPOSITORY Patient Outreach ([facility]) KENIA TRIVEDI ([id number]) 1965 M Date Time Provider Department 10/18/17 MARÍA MCCARTNEY [facility] During your visit today, we recorded the following information about you: Allergies As of Date: 10/18/2017 (No Known Allergies) Date Reviewed: 07/20/2016 Reviewed by: Katharina Vick Ma - Fully Assessed Visit Diagnosis:Medication management [Z79.899] Order(s):BASIC METABOLIC PNL [SQBMP] Order #: [id number] FUTURE HGB A1C [[id number]] Order #: [id number] FUTURE LIPID PANEL BASIC [SQLIPB] Order #: [id number] FUTURE Prescriptions as of 10/18/2017 Sig: X LISINOPRIL 20 MG TABLET Take 1 tablet by mouth once d* X METOPROLOL SUCCINATE ER 25 MG* Take 1 tablet by mouth once d* POTASSIUM CHLORIDE ER 20 MEQ * Take 20 mEq by mouth once yohan* IPRATROPIUM 20 MCG-ALBUTEROL * Inhale 1 Puff as instructed a* X FUROSEMIDE 20 MG TABLET Take 20 mg by mouth once yeni* X ATORVASTATIN 80 MG TABLET Take 80 mg by mouth once yeni* CPAP Initiate Auto PAP @ 5- 20 cm o* X COMPOUNDED PRESCRIPTION Knee High Compression Stockin* Problem List As Of Date 10/18/2017 Noted Resolved Hypertension [I10] INVALID FOR* Venous insufficiency [I87.2] INVALID FOR* CURTIS (obstructive sleep apnea) [G47.33] INVALID FOR* Cardiac LV ejection fraction 21-30% [R93.1] INVALID FOR* Encounter Status:Closed by MARIA EUGENIA RUSH on 12/30/17 ALLERGIES ALLERGIES DATE TYPE / CODE NAME / CODE REACTION SEVERITY SOURCE 04/11/2018 Drug No Known Unknown [facility] Allergy/416 Allergies/H40923 Hospital 711359(SNOM 0388(RXNORM) Repository ED CT) Drug NO KNOWN [facility] Class/13090 ALLERGIES [place] 1003(SNOMED Repository CT) ENCOUNTERS ENCOUNTERS ADMIT/DISCHARGE ACCOUNT ADMITTING ENCOUNTER LOCATION SOURCE NUMBER CLASS 04/11/2018/04/12/19 [id number] [facility] [place] [facility] ing:SD3Pcdz: Repository TH218Quf: 1 04/11/2018 [id number] [facility] BMSilding:B [place].[facility] Repository 11/14/2017/11/16/19 [id number] Ambulatory [address] [place] Repository 11/07/2017/11/08/19 [id number] Ambulatory [address] Repository 11/07/2017/11/09/19 [id number] Ambulatory [address] Repository 10/31/2017/11/01/19 [id number] Ambulatory [address] Repository 10/31/2017/11/02/19 [id number] Ambulatory [address] Repository PAYERS PAYERS ENCOUNTER GUARANTOR PAYER SUBSCRIBER SOURCE 04/11/2018 KENIA W Primary KENIA [id number] TR Insurance:ANTHEMPolic SMITHDOB: [address] y Number: [id number] [id number]: ([id number]) [id number] Repository [phone] () Date:[id number] [id number] [place] [address] 67265SN: 04/11/2018 Secondary NOT GIVENUNK Uriel Insurance:SELF PAY [facility] Number: Effective Repository Date:2018-04-11 04/11/2018 KENIA W Primary NOT GIVENUNK [place] [id number] TR Insurance:SELF PAY [facility] [address]Spk: ([phone]) Number: Effective Repository [phone] () Date:2018-04-11
--- OUTSIDE RECORDS SUMMARY | 2018-06-13 23:21 | XMS RPT_ITS ---
:1965 Author Organization OHIP Care Team Providers Name Role Phone DANAE ANDERSON ([employer]INK[employer] APPARATUS INSPECTOR) Attending Unavailable MARÍA MCCARTNEY Referring Unavailable MARÍA MCCARTNEY Referring Unavailable DANAE ANDERSON ([facility]) Attending Unavailable DANAE ANDERSON ([employer] SPRINKLER APPARATUS INSPECTOR) Referring Unavailable DANAE ANDERSON ([facility]) Referring Unavailable DANAE ANDERSON ([facility]) Attending Unavailable MARÍA MCCARTNEY Referring Unavailable María [...] 11/07/2017 Active Unknown / DANAE ANDERSON Active [facility] UNK(Unknown) (FIRE SPRINKLER APPARATUS INSPECTOR) Main [place] Repository 07/20/2016 Active Abnormal findings NA Active [facility] on diagnostic Main [place] imaging of heart Repository and coronary circulation / R93.1(ICD-10) 10/31/2017 Active Other terminal gauger NA Active [facility] (current) drug Main [place] therapy / Repository Z79.899(ICD-10) 10/31/2017 Active Essential NA Active [facility] (primary) Main [place] hypertension / Repository I10(ICD-10) PROCEDURES PROCEDURES No Procedure Records FoundRESULTS RESULTS DISCHARGE INSTRUCTION Observed: 04/12/2018 Status: F Source: URIEL 2:39 PM [facility] REPOSITORY [facility] Medical Records Department [address] [place] [address] Instructions for Home/Discharge Instructions 04/12/18 0715 MR#: [id number] Acct: [id number] Name: KENIA TRIVEDI Rep #: [id number] : 1965 52 From: Argelia Silverman PA-C [...] mg PO DAILY 04/11/18 Hydrocodone Bitart/Apap 5-325 [[place] 5/325] 1 - 2 tablet PO Q6H PRN PRN 3 Days #10 tablet 04/12/18 Allergies/Adverse Reactions: Allergies No Known Allergies Allergy (Verified 04/11/18 15:00) The following prescriptions were given: Hydrocodone Bitart/Apap 5-325 [[place] 5/325] 1 - 2 tablet PO Q6H PRN PRN 3 Days #10 tablet PRN Reason: Mild-Moderate (pain scale 1-5) Primary Care Physician: María Mccartney MD [Primary Care Provider] - Test Results: Test results from this visit will be discussed in further detail at your follow-up appointment, if applicable. Please Follow Up With: Argelia Silverman PA-C - [phone] When: 10 days 04/12/18 07 <Electronically signed by Argelia Silverman PA-C> Date Argelia Silverman PA-C CC: María Mccartney MD Signed BEDSIDE GLUCOSE Collected: 04/11/2018 Status: F Source: URIEL 8:40 PM [facility] REPOSITORY TYPE CODE TESTS RESULT OUT OF REFERENCE UNITS RANGE LAB L501.080 70-110 mg/dL High BEDSIDE GLU 152 Result Comment: MANAGEMENT OF PATIENT CARE PER NURSING PROTOCOL Performed By: #### L501.080 #### [facility] Point of Care [address] [place] [address] BEDSIDE GLUCOSE Collected: 04/11/2018 Status: F Source: URIEL 6:33 PM [facility] REPOSITORY TYPE CODE TESTS RESULT OUT OF RANGE REFERENCE UNITS LAB L501.080 70-110 mg/dL Normal BEDSIDE GLU 104 Result Comment: MANAGEMENT OF PATIENT CARE PER NURSING PROTOCOL Performed By: #### L501.080 #### [facility] Point of Care [address] [place] [address] EMERGENCY DEPARTMENT Observed: 04/11/2018 Status: F Source: URIEL SUMMARY 5:53 PM [facility] REPOSITORY [facility] Medical Records Department [address] [place] [address] Emergency Department Summary 04/11/18 1521 MR#: [id number] Acct: [id number] Name: KENIA TRIVEDI Rep #: [id number] : 1965 52 From: Son Robbins DO [...] riding in a car. 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 It may contain incorrect words, spelling, and punctuation that were not noted in review of the chart prior to signing ED Disposition - Plan for ED Patient: Disposition: Acute Care [facility] Chief Complaint: Abd Pain Diagnosis: Acute appendicitis Referrals: María Mccartney MD [Primary Care Provider] - What to do if you have Problems For any increased pain, shortness of breath, bleeding, nausea or vomiting, chest pain, or any unexpected problems, contact your Primary Care Provider. Call [facility] ([phone]) or report to the closest Emergency Room. Call 911 if necessary. 04/11/18 1753 <Electronically signed by Son Robbins DO> Date Son Robbins DO Cosigner Signature (If Indicated): Date CC: María Mccartney MD URINALYSIS, COMPLETE Collected: 04/11/2018 Status: F Source: URIEL 4:59 PM [facility] REPOSITORY Order Comment: Order Date: 04/11/18 How [...] URINE SEEN Performed By: #### L400.0001 #### [facility] [address] [place], [address] CBC W/DIFF, AUTOMATED Collected: 04/11/2018 Status: F Source: [place] 3:20 PM [facility] REPOSITORY TYPE CODE TESTS RESULT OUT OF [...] Lymph 3.22 Performed By: #### L100.0100 #### [facility] [place], [address] COMPREHENSIVE METABOLIC Collected: 04/11/2018 Status: F Source: URIEL [facility] 3:20 PM [facility] REPOSITORY TYPE CODE TESTS RESULT OUT OF [...] 7 Performed By: #### L500.4050, L501.2450 #### [facility] [address] [place], [address] LIPASE Collected: 04/11/2018 Status: F Source: [place] 3:20 PM [facility] REPOSITORY TYPE CODE TESTS RESULT OUT OF RANGE REFERENCE UNITS LAB L501.2450 73-393 U/L Normal LIPASE 201 Performed By: #### L500.4050, L501.2450 #### [facility] [address] [facility], [address] ABDOMEN/PELVIS WITH Observed: 04/11/2018 Status: F Source: [place] CONTRAST 3:19 PM [facility] REPOSITORY [facility] Imaging Services [address] [place] [address] Abdomen/Pelvis WITH Contrast MR#: [id number] Acct: [id number] Name: KENIA TRIVEDI Rep #: [id number] : 1965 M 52 From: Neymar Puente MD PCP: María Mccartney MD Status: REG ER Study: Abdomen/Pelvis WITH Contrast Date of Exam: 04/11/18 Exam# [id number] Ordering Dr: Son Robbins DO STUDY: CT [...] CC: Son Robbins DO; María Mccartney MD Music Theory Professor: Signed PROGRESS Observed: 11/14/2017 Status: COMPLETED Source: [place] 7:40 AM [facility] [place] REPOSITORY HNO ID: [id number] Author: Danae Anderson Service: (none) Author Type: [...] updated today in the History tab of [employer]. Current Medications and allergies reviewed. 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 Technologist: Lawanda Fall [facility] Interpreting physician: Dwight Nagy MD ? PATIENT: [...] The mitral valve leaflets are structurally normal. [place] mitral valve. There is trivial mitral valve regurgitation. There is no thickening. There is no calcification. ? TRICUSPID VALVE The tricuspid valve leaflets are structurally normal. [place] tricuspid valve. The hepatic venous pattern showed [...] APRN.CNP CNOV Observed: 11/14/2017 Status: COMPLETED Source: [place] 7:40 AM [facility] REPOSITORY Office Visit (FAMPWS) KENIA TRIVEDI ([id number]) 1965 M Date Time Provider Department 11/14/17 [...] updated today in the History tab of [facility]. Current Medications and allergies reviewed. 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 Technologist: Lawanda Fall [facility] Interpreting physician: Dwight Nagy MD ? PATIENT: [...] The mitral valve leaflets are structurally normal. [place] mitral valve. There is trivial mitral valve regurgitation. There is no thickening. There is no calcification. ? TRICUSPID VALVE The tricuspid valve leaflets are structurally normal. [place] tricuspid valve. The hepatic venous pattern showed [...] prior. Letter for DOT given. Danae Anderson APRN.FIRE SPRINKLER APPARATUS INSPECTOR Referring Provider: MARÍA MCCARTNEY [[id number]] Allergies As of Date: 11/14/2017 (No Known Allergies) Date Reviewed: 11/14/2017 Reviewed by: Rupa Nguyễn Horticulture Superintendent - Fully Assessed Reason for Visit: Blood Pressure [15] Primary Visit Diagnosis:Essential hypertension [I10] Other Visit Diagnosis:Chronic combined systolic and diastolic CHF (congestive heart failure) (HCC) [I50.42] Order(s):BASIC METABOLIC PNL [SQBMP] Order #: [id number] FUTURE Prescriptions as of 11/14/2017 Sig: FUROSEMIDE [...] History Recorded Letter Text Danae Anderson CNP [address], [place] [address] 11/14/2017 Kenia Trivedi CCF# [id number] [address] [place] [address] [place] [address] TO WHOM IT MAY CONCERN: This is [...] 11/14/17 CNOV Observed: 11/07/2017 Status: COMPLETED Source: [place] 2:30 PM [facility] REPOSITORY Office Visit (CARDWS) KENIA TRIVEDI ([id number]) 1965 M Date Time Provider Department 11/07/17 [...] Krista Norton RN Referring Provider: DANAE ANDERSON ([facility]) [[id number]] Allergies As of Date: 11/07/2017 (No Known Allergies) Date Reviewed: 11/07/2017 Reviewed by: Rupa Nguyễn Horticulture Superintendent - Fully Assessed Visit Diagnosis:Cardiac LV ejection fraction 21-30% [R93.1] Order(s):ECHO [[id number]] Order #: [id number]. #:[id number]: 1 IV START - SPECIFY [[id number]] Order #: [id number]: 1 SALINE LOCK DISCONTINUE [[id number]] Order #: [id number]: 1 [] perflutren lipid microspheres (DEFINITY) 1.1 [...] [E78.2] INVALID FOR* Visit Notes: >> Krista Norton RN [facility] Nov 07, 2017 2:55 PM Status: Signed [...] 11/08/17 CNOV Observed: 11/07/2017 Status: COMPLETED Source: [place] 12:40 PM [facility] REPOSITORY Office Visit (FAMPWS) KENIA TRIVEDI ([id number]) 1965 M Date Time Provider Department 11/07/17 12:40 PM DANAE ANDERSON ([facility]) FAMPWS During your visit today, we recorded [...] updated today in the History tab of [employer]. Current Medications and allergies reviewed. 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[employer] Social History Main Topics [...] Danae Anderson APRN.CNP Referring Provider: DANAE ANDERSON ([facility]) [[id number]] Allergies As of Date: 11/07/2017 (No Known Allergies) Date Reviewed: 11/07/2017 Reviewed by: Rupa Nguyễn Horticulture Superintendent - Fully Assessed Reason for Visit: Blood Pressure [15] Cmt: 1 week follow up Primary Visit Diagnosis:Essential hypertension [I10] Other Visit Diagnosis:Type 2 diabetes mellitus without complication, without long-term current use of insulin (HCC) [E11.9] Order(s):lisinopril (ZESTRIL, PRINIVIL) 20 mg tabletTake 1.5 tablets by mouth once daily.Disp: 30 tabletRfl: 2 ALBUMIN/CREAT RATIO RND UR [SQUACR] Order #: [id number] FUTURE Prescriptions as of 11/07/2017 Sig: LISINOPRIL [...] 11/07/17 PROGRESS Observed: 11/07/2017 Status: COMPLETED Source: [place] 12:10 PM [facility] REPOSITORY O ID: [id number] Author: Danae Anderson Service: (none) Author Type: [...] updated today in the History tab of [facility]. Current Medications and allergies reviewed. 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 Says his dad had been on it for a long time causing damage to his kidneys. Please advise. Told patient this could probably be discussed at upcoming appt 11/07/17. Danae Anderson APRN.CNP 11/01/2017 12:00 PM Signed terminal supervisor elevated glucose from uncontrolled diabetes causes kidney [...] HEMOGLOBIN A1C Collected: 10/31/2017 Status: F Source: [place] 11:11 AM [facility] REPOSITORY TYPE CODE TESTS RESULT OUT OF REFERENCE UNITS RANGE LAB HGBA1C 4.3-5.6 % High Hemoglobin A1c 6.9 LAB HBA0 mg/dL Est. Average Glucose 151 Result Comment: eAG: (Estimated average glucose) is a calculated value from HgbA1c and is patient accounting representative of the average blood glucose level in the last 2-3 month period. Performed By: #### HBA1C, LIPB #### [facility] [address] [address] LIPID PANEL, BASIC Collected: 10/31/2017 Status: F Source: [place] 11:11 AM [facility] REPOSITORY TYPE CODE TESTS RESULT OUT OF [...] Desk Reference: National Heart, Lung, and Blood [place]. National Institutes of Health. 2001: NIH Publication No. 01-3305. 2. An International Atherosclerosis Society position paper: global recommendations for the management of dyslipidemia: executive summary, Atherosclerosis. 2014: 232(2):410-413. Performed By: #### HBA1C, LIPB #### [facility] [address] [place], [place] [address] COMP METABOLIC PANEL Collected: 10/31/2017 Status: F Source: [place] 11:11 AM [facility] REPOSITORY TYPE CODE TESTS RESULT OUT OF REFERENCE UNITS RANGE LAB TP 6.3-8.0 g/dL Protein, Total 7.1 LAB ALB 3.9-4.9 g/dL Albumin 4.0 LAB CA 8.5-10.2 mg/dL Calcium, Total 9.8 LAB TBIL 0.2-1.3 mg/dL Bilirubin, Total 0.7 LAB ALKP 36-108 U/L Alkaline Phosphatase 97 LAB AST 14-40 U/L AST 23 LAB GLU 74-99 mg/dL Glucose High 126 Result Comment: The [place] Diabetes Association (ADA) provides guidance for cutoff [...] Standards of Medical Care in Diabetes 2016, [place] Diabetes Association. Diabetes Care. 2016.39(Suppl 1). LAB [...] actual GFR. Performed By: #### CMP #### [facility] [address] [address] CNOV Observed: 10/31/2017 Status: COMPLETED Source: [place] 10:20 AM [facility] REPOSITORY Office Visit (FAMPWS) KENIA TRIVEDI ([id number]) 1965 M Date Time Provider Department 10/31/17 10:20 AM DANAE ANDERSON ([facility]) FAMPWS During your visit today, we recorded [...] Was previously under the care of a distribution accounting clerk for heart failure, had a LV EF of 21-30%, but has been since released. This occurred when he has a bout of pneumonia. 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[employer] Social History Main Topics [...] Danae Anderson APRN.ARCELIA Referring Provider: MARÍA MCCARTNEY [[id number]] Allergies As of Date: 10/31/2017 (No Known [...] 1 LIPID PANEL BASIC [SQLIPB] Order #: [id number] FUTURE COMP METABOLIC PANEL [SQCMP] Order #: [id number] FUTURE ECHO [[id number]] Order #: [id number]: 1 FUTURE furosemide (LASIX) 20 mg tabletTake [...] 10/31/17 PROGRESS Observed: 10/31/2017 Status: COMPLETED Source: [place] 10:12 AM [facility] REPOSITORY HNO ID: [id number] Author: Danae García) Evans Service: (none) Author Type: Nurse Practitioner Type: Progress Notes Filed: 10/31/2017 10:50 AM Note Text: Chief Complaint Patient presents with: Refill Request HPI Kenia Trivedi is a 52 year old male who presents here today for Above Complaints. Patient presents to the office for refill of his medications. Was previously under the care of a distribution accounting clerk for heart failure, had a LV EF of 21-30%, but has been since released. This occurred when he has a bout of pneumonia. 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[employer] Social History Main Topics [...] APRN.ARCELIA CNPTOUTREACH Observed: 10/18/2017 Status: COMPLETED Source: [place] 12:00 AM [facility] REPOSITORY Patient Outreach (INTMWH) KENIA TRIVEDI ([id number]) 1965 M Date Time Provider Department 10/18/17 MARÍA MCCARTNEY [facility] During your visit today, we recorded the following information about you: Allergies As of Date: 10/18/2017 (No Known Allergies) Date Reviewed: 07/20/2016 Reviewed by: Katharina Vick Ma - Fully Assessed Visit Diagnosis:Medication management [Z79.899] Order(s):BASIC METABOLIC PNL [SQBMP] Order #: [id number] FUTURE HGB A1C [GKRLF5T] Order #: [id number] FUTURE LIPID PANEL BASIC [SQLIPB] Order #: [id number] FUTURE Prescriptions as of 10/18/2017 Sig: X [...] SEVERITY SOURCE 04/11/2018 Drug No Known Unknown [facility] Allergy/416 Allergies/P92628 Hospital 010229(SNOM 0388(RXNORM) Repository ED CT) Drug NO KNOWN [facility] Class/64930 ALLERGIES Main [place] 1003(SNOMED Repository CT) ENCOUNTERS ENCOUNTERS ADMIT/DISCHARGE ACCOUNT ADMITTING ENCOUNTER LOCATION SOURCE NUMBER CLASS 04/11/2018/04/12/19 [id number] [facility] Gunter Gunter [address] [facility] ing:[id number]: Repository [id number]: 1 04/11/2018 [id number] [facility] BMSilding:B Gunter [place].CF.[facility] Repository 11/14/2017/11/16/19 [id number] Ambulatory [address] Main [place] Repository 11/07/2017/11/08/19 [id number] Ambulatory [address] Repository 11/07/2017/11/09/19 [id number] Ambulatory [address] Repository 10/31/2017/11/01/19 [id number] Ambulatory [address] Repository 10/31/2017/11/02/19 [id number] Ambulatory [address] Repository PAYERS PAYERS ENCOUNTER GUARANTOR PAYER SUBSCRIBER SOURCE 04/11/2018 KENIA W Primary KENIA [id number] TR Insurance:ANTHEMPolic SMITHDOB: [address] y Number: [id number] Hospital [address]Jho: (337) [id number] Repository [phone] () Date:[id number] [place] [id number]: 04/11/2018 Secondary NOT GIVENUNK Uriel Insurance:SELF PAY [facility] Number: Effective Repository Date:2018-04-11 04/11/2018 KENIA W Primary NOT GIVENUNK Gunter [id number] TR Insurance:SELF PAY [facility] [address]Xzl: (419) Number: Effective Repository [phone] () Date:2018-04-11
== END 2018-04-12 15:28 | disposition home or self-care (01) ==
LOC: ED 17:53 → SDC 18:02 → MS3 18:04 → SDC 04-12 10:38
PROVIDERS: Admitting Provider Surgery; Emergency Provider Emergency Medicine; Family Provider Family Medicine; PCP Family Medicine; Visit Provider Surgery
PROC: 0DTJ4ZZ Resection of Appendix, Percutaneous Endoscopic Approach (ICD-10-PCS; CPT 44970; principal; 2018-04-11 19:30)
DX: K35.30 Acute appendicitis with localized peritonitis, without perforation or gangrene (principal); F17.200 Nicotine dependence, unspecified, uncomplicated; K63.89 Other specified diseases of intestine; E11.9 Type 2 diabetes mellitus without complications; E66.01 Morbid (severe) obesity due to excess calories; I10 Essential (primary) hypertension; G47.30 Sleep apnea, unspecified; Z68.39 Body mass index [BMI] 39.0-39.9, adult; Z71.3 Dietary counseling and surveillance
CPT/HCPCS: 00840; 44970; 74177; 80053; 81001; 82962; 83690; 85025; 88304; 88341; 88342; 94762; 96361; 96365; 96366; 96375; 99218; 99282; J7030; J7120; Q9967; A4216; C1760; G0378; J2405